=== PATIENT | female | born 1975 | race African-American/Black ===

== ENCOUNTER 2016-07-24 09:07 | Emergency (ER) | payer SELFPAY ==
[2016-07-24] MEDS ORDERED: Ondansetron HCl/PF 4 MG/2 ML Vial ONE (09:40)
[2016-07-24] MEDS ORDERED: Ketorolac Tromethamine 30 MG/ML VIAL ONE (09:40)
[2016-07-24 09:42] LABS: Bilirubin Negative (Negative); Blood, Urine Negative (Negative); Glucose, Urine (Dipstick) >=1000 mg/dL (Negative); Ketone, Urine 15 mg/dL (Negative); Nitrite Negative (Negative); Protein, Urine (Dipstick) Negative (Neg-Trace); Urobilinogen 0.2 mg/dL (0.2-1.0)
[2016-07-24 10:07] LABS: Methadone Not Detected (NotDetected); Methamphetamine Not Detected (NotDetected)
[2016-07-24 10:16] LABS: #Basophils 0.2 thou/uL (0.0-0.2); #Eosinphils 0.1 thou/uL (0.0-0.7); #Lymphocytes 0.4 thou/uL (1.20-3.40); #Monocytes 0.7 thou/uL (0.11-0.59); #Neutrophils 9.8 thou/uL (1.40-6.50); %Basophils 1.7 % (0.0-1.0); %Eosinophils 0.6 % (0.0-10.0); %Lymphocytes 3.8 % (21.0-51.0); %Monocytes 5.8 % (0.0-10.0); Hematocrit 38.1 % (36.0-47.0); Red Blood Cell (RBC) Count 4.56 mill/uL (4.20-5.40); White Blood Cell (WBC) Count 11.1 thou/uL (4.8-10.8)
[2016-07-24 10:23] LABS: ALT (SGPT) 14 U/L (0-55); AST (SGOT) 16 U/L (5-34); Alkaline Phosphatase 85 U/L (40-150); Anion Gap 18 mmol/L (10-20); BUN (Urea Nitrogen) 11 mg/dL (7.0-18.7); Bilirubin, Total 0.7 mg/dL (0.2-1.2); Calc. Creatinine Clearance 0 mL/min (70-130); Calcium 9.4 mg/dL (7.8-10.44); Carbon Dioxide 17 mmol/L (22-29); Chloride 104 mmol/L (98-107); Estimated GFR-MDRD 72; Globulin 3.3 g/dL (2.4-3.5); Protein, Total 7.5 g/dL (6.0-8.3)
--- NOTE | 2016-07-24 10:25 | CT ---
NONCONTRAST ENHANCED CT IMAGES ABDOMEN AND PELVIS: HISTORY: A 41-year-old with a history of pain. FINDINGS: Noncontrast-enhanced CT images of the abdomen and pelvis demonstrate the lung bases to be unremarkab le. No evidence of free intraperitoneal air is seen. The liver, spleen, and pancreas are unremarkable. The gallbladder has been surgically removed. Adr enal glands are unremarkable. Kidneys are unremarkable. No dilated loops of bowel seen. No signif icant evidence of bowel obstruction seen. A moderate amount of stool is seen in the colon. No evid ence of free intraperitoneal air is seen. No dilated loops of bowel seen. No evidence of renal calculi seen. IMPRESSION: No significant evidence of intraabdominal or pelvic pathology seen. Exam is limited due to the fact that IV and oral contrast was not given. POS: [facility]
[2016-07-24 10:56] LABS: Amylase 36 U/L (25-125)
[2016-07-24 11:04] LABS: Lipase 30 U/L (8-78)
[2016-07-24] MEDS ORDERED: Insulin Regular 300 UNITS/3 ML VIAL ONE ×2 (11:06→11:24)
[2016-07-24] MEDS ORDERED: Sodium Chloride 0.9% 100 ML ONE (11:25)
--- NOTE | 2016-07-24 11:33 | PICIS ---
[facility] EMERGENCY RECORD TRIAGE (MonJul 24, 2016 09:11 CAWO) TRIAGE NOTES: PT reports vomiting with low back pain and diffuse abdominal pain on set 07/23. (MonJul 24, 2016 09:11 CAWO) PATIENT: NAME: Esther Coyle, AGE: 41, GENDER: female, : Mon1975, TIME OF GREET: MonJul 24, 2016 09:07, PREFERRED LANGUAGE: Arabic, ETHNICITY: Not or , ECODE BILLING MAP: [facility], SSN: [id number], Zip Code: [address], KG WEIGHT: 77.11, PHONE: , , , PERSON ID: [id number]. (MonJul 24, 2016 09:11 CAWO) COMPLAINT: Abdominal Pain. (MonJul 24, 2016 09:11 CAWO) ADMISSION: URGENCY: 3 Urgent, ADMISSION SOURCE: Home, TRANSPORT: Walk-in, BED: ER -04. (MonJul 24, 2016 09:11 CAWO) IMMUNIZATIONS: Flu vaccine up to date, Tetanus immunization up to date, Pneumococcal vaccine not up to date. (09:17 CAWO) SIRS SCORING: Heart Rate 55-109 (0), Temp range 96.8-101.1 (0), respiratory rate 12-24 (0), Mental Status altered: no (0), Infection or Suspected Infection: No. (09:17 CAWO) TRIAGE SCREENING: Patient denies suicidal ideation, Patient denies presence of domestic violence. (09:17 CAWO) TREATMENTS IN PROGRESS: Treatments given Prehospital: motrin 400 mg. (09:17 CAWO) PROVIDERS: TRIAGE NURSE: Estela Rutherford RN. (MonJul 24, 2016 09:11 CAWO) VITAL SIGNS: BP 132/75, Pulse 100, Resp 20, Temp 98.6, (Oral), Pain 10, O2 Sat 100, on Room Air, Time 07/24/2016 09:12. (09:12 CAWO) PREVIOUS VISIT ALLERGIES: No Known Drug Allergies. (MonJul 24, 2016 09:11 CAWO) No Known Drug Allergies. (09:17 CAWO) KNOWN ALLERGIES No Known Drug Allergies CURRENT MEDICATIONS (10:25 CAWO) metFORMIN: TABLET : Strength - 500 mg : ORAL Patient Dose: 1000 mg Oral 2 times a day. VITAL SIGNS VITAL SIGNS: BP: 132/75, Pulse: 100, Resp: 20, Temp: 98.6 (Oral), Pain: 10, O2 sat: 100 on Room Air, Time: 07/24/2016 09:12. (09:12 CAWO) BP: 123/78, Pulse: 95, Resp: 18, Pain: 10, O2 sat: 100 on Room Air, Time: 07/24/2016 10:00. (10:00 CAWO) BP: 117/78, Pulse: 87, Resp: 16, Pain: 0, O2 sat: 100 on Room Air, Time: 07/24/2016 10:30. (10:30 CAWO) BP: 105/86, Pulse: 91, Resp: 18, Temp: 98.8 (Oral), Pain: 0, O2 sat: 100 on Room Air, Time: 07/24/2016 11:30. (11:30 CAWO) NURSING ASSESSMENT: ABDOMEN (09:35 CAWO) &a-1R&a+25V*p+0X*d7872D*c152B*c15G*c2P*p-0X&a-25V&a+1RName: Esther Coyle : F41 MedRec: [id number] AcctNum: [id number] Prepared: Rupal Jul 24, 2016 12:16 by Interface Page 1 of 14 pMD [facility] EMERGENCY RECORD CONSTITUTIONAL: Complex assessment performed, Patient arrives, via hospital wheelchair, Gait steady, History obtained from patient, Patient appears comfortable, Patient cooperative, Patient alert, Oriented to person, place and time, Skin warm, Skin dry, Skin normal in color, Mucous membranes pink, Mucous membranes moist, Patient is well-groomed, Patient complains of abdominal pain, PT reports abdominal pain with nausea and vomiting x 1 day. PT reports unable to sleep due to pain in bilateral flank and upper back. PT reports suprapubic pain as well with c/o recent UTI 1 month ago. PT in nad at present. PAIN: aching pain, diffusely, to the right flank, upper back, on a scale 0-10 patient rates pain as 10. NONVERBAL PAIN: Non-Verbal pain assessment findings include: No non-verbal complaints while at rest (0), Non-Verbal complaints present with movement (1), Facial Grimaces not present at rest (0), Facial grimaces present with movement (1), Bracing not present at rest (0), Bracing not present with movement (0), Restlessness not present at rest (0), Restlessness not present with movement (0), Rubbing not present at rest (0), Rubbing not present with movement (0), Result: 2. ABDOMEN: Abdomen assessment findings include abdomen symmetrical, Abdomen soft, tender, diffusely, to the left flank, to the right flank, Associated with nausea, Associated with vomiting. LMP: Last menstrual period not applicable due to menopause. GENITOURINARY FEMALE: Associated with urinary complaints, burning, difficulty urinating, no associated vaginal discharge, no associated vaginal bleeding, no associated vaginal foreign body, no associated complaints of painful intercourse, no urinary catheter present. SAFETY: Side rails up, Cart/Stretcher in lowest position, Family at bedside, Call light within reach, Hospital ID band on. NURSING ASSESSMENT: FALL RISK (10:07 CAWO) FALL RISK: Fall risk assessment findings include: no history of falls (0), No bed rest greater than 2 days (0), No use of level of consciousness altering agents with mentation or cognitive changes (0), No change in blood pressure (0), No sensory deficits (0), No impaired mobility (0), No neurologic diagnosis (0), No elimination problems (0), No confusion (0), Total score 0. NURSING ASSESSMENT: SKIN (10:07 CAWO) SKIN: Skin assessment findings include skin warm, Skin dry, Skin normal in color, Inspection findings include: No pressure ulcer to the shoulder, Inspection findings include no pressure ulcer to the elbow, Inspection findings include no pressure ulcers to the hip, Inspection findings include no pressure ulcer to the sacrum, Inspection findings include no pressure ulcer to the heel, Inspection findings include no pressure ulcer, Inspection findings include no pressure ulcer. &a-1R&a+25V*p+0X*i6432W*c152B*c15G*c2P*p-0X&a-25V&a+1RName: Esther Coyle : F41 MedRec: [id number] AcctNum: [id number] Prepared: Rupal Jul 24, 2016 12:16 by Interface Page 2 of 14 D [facility] EMERGENCY RECORD MARION SCALE: (3) Sensory perception slightly limited, (3) Skin is occasionally moist, (3) Patient walks occasionally, (3) Slightly limited mobility, (3) Adequate nutrition, (3) Patient has no apparent problem moving, Marion Risk Total: 18. SAFETY: Side rails up, Cart/Stretcher in lowest position, Family at bedside, Call light within reach, Hospital ID band on. NURSING PROCEDURE: BEDSIDE SIRS TESTING (11:19 CAWO) SCORES: Heart Rate 55-109 (0), Temp range 96.8-101.1 (0), respiratory rate 12-24 (0), Latest WBC 3-14.9 (0), Mental Status altered: no (0), Infection or Suspected Infection: No. NURSING PROCEDURE: TECHNICAL PROGRAMS MANAGER (09:17 CAWO) PATIENT IDENTIFIER: Patient's identity verified by patient stating name, Patient's identity verified by patient stating date, Patient's identity verified by hospital ID bracelet, Patient actively involved in identification process. TECHNICAL PROGRAMS MANAGER: Patient placed on groundwater monitoring technician, Patient placed on non-invasive blood pressure monitor, Patient placed on continuous pulse oximetry. FOLLOW-UP: After procedure, patient tolerating monitoring. NOTES: Emotional support needed and given. NURSING PROCEDURE: IV PATIENT IDENITIFIER: Patient actively involved in identification process, Patient's identity verified by patient stating name, Patient's identity verified by patient stating date, Patient's identity verified by hospital ID bracelet. (09:42 CAWO) IV SITE 1: IV established, to the left hand, using a 20 gauge catheter, in one attempt, IV site prepped with Chloraprep, Saline lock established. (09:42 CAWO) IV SITE 2: IV therapy indicated for hydration, IV therapy indicated for medication administration, IV established, to the left forearm, using a 20 gauge catheter, in two attempts, IV site prepped with chlroaprep, Saline lock established, Flushed with normal saline (mls): 10, Notes: by Margaret BOYD. (11:01 CAWO) FOLLOW-UP SITE 1: After procedure, sterile transparent dressing applied, After procedure, no drainage at IV site, After procedure, no swelling at IV site, After procedure, no redness at IV site. (09:42 CAWO) NOTES: Emotional support needed and given. (09:42 CAWO) NURSING PROCEDURE: NURSE NOTES NURSES NOTES: Notes: Dr Swain at BS. (09:18 CAWO) Patient assisted to bathroom with unsteady gait. (09:21 CKNU) Notes: PT resting in bed. PT requesting to eat chips and drink water at this time. PT informed the need to remain NPO until blood results and CT scan are obtained. NAD noted. RR even and unlabored. (10:25 CAWO) Notes: PT resting with eyes closed at present. Family at BS. VSS. &a-1R&a+25V*p+0X*a5547I*c152B*c15G*c2P*p-0X&a-25V&a+1RName: Esther Coyle : F41 MedRec: [id number] AcctNum: [id number] Prepared: Rupal Jul 24, 2016 12:16 by Interface Page 3 of 14 pMD [facility] EMERGENCY RECORD Monitors on with side rails up x 2 and call light within reach. (10:49 CAWO) NURSING PROCEDURE: TRANSFER (11:55 CAWO) TRANSFER: Reason for transfer need for specialized care, Diagnosis: DKA, Accepting institution: [facility], Accepting physician: Michael Referring physician: Wiliam, Transported by non-urgent ambulance, accompanied by emergency medical services personnel, Report called to receiving facility, [facility], Provided opportunity to answer questions, Summary of Care printed, Copy of patient record prepared for receiving facility, Status of patient's valuables documented on chart, Medication reconciliation form prepared and sent to receiving facility, Patient consent for transfer signed, Patient given appropriate sedation for safe transport, Family member contacted. BELONGINGS: Belongings and valuables with patient upon arrival to the Emergency Department include:, Belongings and valuables with patient at time of admission include:, Belongings remain with patient, Valuables remain with patient. NURSING PROCEDURE: TRANSPORT TO TESTS (09:58 CAWO) PATIENT IDENTIFIER: Patient actively involved in identification process, Patient's identity verified by patient stating name, Patient's identity verified by hospital ID bracelet. TRANSPORT TO TESTS: Transport indicated to facilitate diagnosis, Patient transported to CT scan, via cart, Accompanied by x-ray nanotechnology engineering technician. ORDER DETAILS Order Name: Amylase, Status: Active, Time: 10:26 07/24/2016, User: SLIM, - Ordered for: MD Swain Joseph, - Entered by: MD Swain Joseph - Rupal Jul 24, 2016 10:26, - Quantity: 1, Order Name: Beta-Hydroxybutyrate (Ketone), Status: Active, Time: 10:07/24/2016, User: SLIM, - Ordered for: MD Swain Joseph, - Entered by: MD Swain Joseph - Sun Jul 24, 2016 10:26, - Quantity: 1, Order Name: CBC with Differential, Status: Active, Time: 09:21 07/24/2016, User: SLIM, - Ordered for: MD Swain Joseph, - Entered by: MD Swain Joseph - Sun Jul 24, 2016 09:21, - Quantity: 1, Order Name: Comprehensive Metabolic Panel, Status: Active, Time: 09:21 07/24/2016, User: SLIM, - Ordered for: MD Swain Joseph, - Entered by: MD Swain Joseph - Sun Jul 24, 2016 09:21, - Quantity: 1, Order Name: CT Abdomen Pelvis WO Con, Status: Active, Time: 09:21 &a-1R&a+25V*p+0X*v9646K*c152B*c15G*c2P*p-0X&a-25V&a+1RName: Esther Coyle : F41 MedRec: [id number] AcctNum: [id number] Prepared: MonJul 24, 2016 12:16 by Interface Page 4 of 14 pMD [facility] EMERGENCY RECORD 07/24/2016, User: SLIM, - Ordered for: MD Swain Joseph, - Entered by: MD Swain Joseph - Sun Jul 24, 2016 09:21, - Quantity: 1, Order Name: Culture, Urine, Status: Active, Time: 09:21 07/24/2016, User: SLIM, - Ordered for: MD Swain Joseph, - Entered by: MD Swain Joseph - Sun Jul 24, 2016 09:21, - Quantity: 1, Order Name: Drug Screen, Urine, Status: Active, Time: 09:21 07/24/2016, User: SLIM, - Ordered for: MD Swain Joseph, - Entered by: MD Swain Joseph - Sun Jul 24, 2016 09:21, - Quantity: 1, Order Name: Lipase, Status: Active, Time: 10:26 07/24/2016, User: SLIM, - Ordered for: MD Swain Joseph, - Entered by: MD Swain Joseph - Sun Jul 24, 2016 10:26, - Quantity: 1, Order Name: Test, Urine (BHCG), Status: Active, Time: 09:21 07/24/2016, User: SLIM, - Ordered for: MD Swain Joseph, - Entered by: MD Swain Joseph - Sun Jul 24, 2016 09:21, - Quantity: 1, Order Name: SALINE LOCK, Status: Done, Time: 09:36 07/24/2016, User: REJI, - Ordered for: MD Swain Joseph, - Entered by: MD Swain Joseph - Sun Jul 24, 2016 09:21, - Quantity: 1, Order Name: Urinalysis w/ Rflx Microscopic, Status: Active, Time: 09:21 07/24/2016, User: SLIM, - Ordered for: MD Swain Joseph, - Entered by: MD Swain Joseph - Sun Jul 24, 2016 09:21, - Quantity: 1. MEDICATION ADMINISTRATION SUMMARY Drug Name: D5 %-0.45 % sodium chloride, Dose Ordered: 80 mL/hr, Route: IV Fluid Infusion, Status: Given, Time: 11:49 07/24/2016, Drug Name: NovoLIN R, Dose Ordered: 6 units/hr, Route: IV Fluid Infusion, Status: Given, Time: 11:32 07/24/2016, Drug Name: NovoLIN R, Dose Ordered: 8 units, Route: IV Push, Status: Given, Time: 11:14 07/24/2016, Drug Name: morphine injection, Dose Ordered: 4 mg, Route: IV Push, Status: Given, Time: 09:50 07/24/2016, Drug Name: ketorolac injection, Dose Ordered: 30 mg, Route: IV Push, Status: Given, Time: 09:46 07/24/2016, Drug Name: ondansetron HCl intravenous, Dose Ordered: 4 mg, Route: IV Push, Status: Given, Time: 09:45 07/24/2016, Drug Name: *sodium chloride 0.9 % intravenous, Dose Ordered: 1 L, Route: IV Fluid Infusion, Status: Given, Time: 09:44 07/24/2016, &a-1R&a+25V*p+0X*h9018V*c152B*c15G*c2P*p-0X&a-25V&a+1RName: Esther Coyle : F41 MedRec: [id number] AcctNum: [id number] Prepared: Rupal Jul 24, 2016 12:16 by Interface Page 5 of 14 pMD [facility] EMERGENCY RECORD *Additional information available in notes, Detailed record available in Medication Service section. MEDICATION SERVICE D5 %-0.45 % sodium chloride: Order: D5 %-0.45 % sodium chloride (dextrose 5% and 0.45% NaCl) - Dose: 80 mL/hr : IV Fluid Infusion Schedule: Now Ordered by: Jimy Swain MD Entered by: MD Rupal Crane Jul 24, 2016 11:48 Documented as given by: DEB Jean Jul 24, 2016 11:49 Patient, Medication, Dose, Route and Time verified prior to administration. Amount given: 80ml/hr, IV SITE #1 IV fluids established for hydration, IV SITE #1 into left hand, IV SITE #1 2nd bag hung, amount 1 Liter hung, IV SITE #1 Rate of infusion (non-bolus) Infusing at, 80, ml/hr, Connections checked prior to administration, Line traced prior to administration, Catheter placement confirmed via flush prior to administration, IV site without signs or symptoms of infiltration during medication administration, No swelling during administration, No drainage during administration, IV flushed after administration, Correct patient, time, route, dose and medication confirmed prior to administration, Patient advised of actions and side-effects prior to administration, Allergies confirmed and medications reviewed prior to administration. : Follow Up : Response assessment performed, No signs or symptoms of allergic reaction noted, _IV SITE #1:_, IV fluid infusion continued upon transfer from emergency department, on MonJul 24, 2016 11:58, 10 minutes, . (11:58 CAWO) ketorolac injection: Order: ketorolac injection (ketorolac tromethamine) - Dose: 30 mg : IV Push Schedule: Now Ordered by: Jimy Swain MD Entered by: Jimy Swain MD MonJul 24, 2016 09:19 , Acknowledged by: Estela Rutherford RN MonJul 24, 2016 09:25 Documented as given by: Estela Rutherford RN MonJul 24, 2016 09:46 Patient, Medication, Dose, Route and Time verified prior to administration. Amount given: 30mg, IV SITE #1 IVP, subsequent different medication, Slowly, Catheter placement confirmed via flush prior to administration, IV site without signs or symptoms of infiltration during medication administration, No swelling during administration, No drainage during administration, IV flushed after administration, Correct patient, time, route, dose and medication confirmed prior to administration, Patient advised of actions and side-effects prior to administration, Allergies confirmed and medications reviewed prior to administration. morphine injection: Order: morphine injection (morphine sulfate) - Dose: 4 mg : IV Push Schedule: Now Ordered by: Jimy Swain MD &a-1R&a+25V*p+0X*t7405K*c152B*c15G*c2P*p-0X&a-25V&a+1RName: CoyleEsther rothman : F41 MedRec: [id number] AcctNum: [id number] Prepared: MonJul 24, 2016 12:16 by Interface Page 6 of 14 pMD [facility] EMERGENCY RECORD Entered by: Jimy Swain MD MonJul 24, 2016 09:19 , Acknowledged by: Estela Rutherford RN MonJul 24, 2016 09:25 Documented as given by: DEB Jean Jul 24, 2016 09:50 Patient, Medication, Dose, Route and Time verified prior to administration. Amount given: 4mg, IV SITE #1 IVP, subsequent different medication, Slowly, Awake and alert- acceptable, Catheter placement confirmed via flush prior to administration, IV site without signs or symptoms of infiltration during medication administration, No swelling during administration, No drainage during administration, IV flushed after administration, Correct patient, time, route, dose and medication confirmed prior to administration, Patient advised of actions and side-effects prior to administration, Allergies confirmed and medications reviewed prior to administration. NovoLIN R: Order: NovoLIN R (insulin regular, human) - Dose: 8 units : IV Push Schedule: Now Ordered by: Jimy Swain MD Entered by: MD Rupal Crane Jul 24, 2016 10:59 , Acknowledged by: Estela Rutherford RN [place] Jul 24, 2016 11:03 Documented as given by: DEB Jean Jul 24, 2016 11:14 Patient, Medication, Dose, Route and Time verified prior to administration. Amount given: 8units, IV SITE #1 IVP, subsequent different medication, Slowly, Catheter placement confirmed via flush prior to administration, IV site without signs or symptoms of infiltration during medication administration, No swelling during administration, No drainage during administration, IV flushed after administration, Correct patient, time, route, dose and medication confirmed prior to administration, Patient advised of actions and side-effects prior to administration, Allergies confirmed and medications reviewed prior to administration, Co-signed by: DEB Pitts Jul 24, 2016 11:33. NovoLIN R: Order: NovoLIN R (insulin regular, human) - Dose: 6 units/hr : IV Fluid Infusion Schedule: Now Ordered by: Jimy Swain MD Entered by: MD Rupal Crane Jul 24, 2016 11:04 , Acknowledged by: DEB Jean Jul 24, 2016 11:07 Documented as given by: DEB Jean Jul 24, 2016 11:32 Patient, Medication, Dose, Route and Time verified prior to administration. Amount given: 6units/hr, IV SITE #1 IVPB or drip, initial infusion, IVPB mixed in: 100ml, Fluid: 0.9NS, via primary tubing, Connections checked prior to administration, Line traced prior to administration, Catheter placement confirmed via flush prior to administration, IV site without signs or symptoms of infiltration during medication administration, No swelling during administration, No drainage during administration, IV flushed after administration, Correct patient, time, route, dose and medication confirmed prior to administration, Patient advised of actions and side-effects prior to administration, &a-1R&a+25V*p+0X*f6882Y*c152B*c15G*c2P*p-0X&a-25V&a+1RName: Esther Coyle : F41 MedRec: [id number] AcctNum: [id number] Prepared: MonJul 24, 2016 12:16 by Interface Page 7 of 14 pMD [facility] EMERGENCY RECORD Allergies confirmed and medications reviewed prior to administration, 100 units mixed in 100 ml NS, Co-signed by: Tania Bustamante RN MonJul 24, 2016 11:34, Co-signed by: DEB Osborne Jul 24, 2016 11:34. : Follow Up : Response assessment performed, No signs or symptoms of allergic reaction noted, _IV SITE #2:_, Medication infusion continued upon transfer from emergency department, on MonJul 24, 2016 11:58, 30 minutes, . (11:58 CAWO) ondansetron HCl intravenous: Order: ondansetron HCl intravenous (ondansetron HCl) - Dose: 4 mg : IV Push Schedule: Now Ordered by: Jimy Swain MD Entered by: MD Rupal Crane Jul 24, 2016 09:19 , Acknowledged by: DEB Jean Jul 24, 2016 09:25 Documented as given by: DEB Jean Jul 24, 2016 09:45 Patient, Medication, Dose, Route and Time verified prior to administration. Amount given: 4mg, IV SITE #1 IVP, initial medication, Slowly, Catheter placement confirmed via flush prior to administration, IV site without signs or symptoms of infiltration during medication administration, No swelling during administration, No drainage during administration, IV flushed after administration, Correct patient, time, route, dose and medication confirmed prior to administration, Patient advised of actions and side-effects prior to administration, Allergies confirmed and medications reviewed prior to administration. sodium chloride 0.9 % intravenous: Order: sodium chloride 0.9 % intravenous (0.9 % sodium chloride) - Dose: 1 L : IV Fluid Infusion Schedule: Bolus Notes: (Bolus) Ordered by: Jimy Swain MD Entered by: MD Rupal Crane Jul 24, 2016 09:20 , Acknowledged by: DEB Jean Jul 24, 2016 09:25 Documented as given by: DEB Jean Jul 24, 2016 09:44 Patient, Medication, Dose, Route and Time verified prior to administration. Amount given: 1000ml, IV SITE #1 IV fluids established for hydration, IV SITE #1 into left hand, IV SITE #1 1st bag hung, amount 1 Liter hung, IV SITE #1 bolus of 1000 ml established, Connections checked prior to administration, Line traced prior to administration, Catheter placement confirmed via flush prior to administration, IV site without signs or symptoms of infiltration during medication administration, No swelling during administration, No drainage during administration, IV flushed after administration, Correct patient, time, route, dose and medication confirmed prior to administration, Patient advised of actions and side-effects prior to administration, Allergies confirmed and medications reviewed prior to administration. : Follow Up : Response assessment performed, No signs or symptoms of allergic reaction noted, _IV SITE #1:_, IV fluid infusion discontinued, on [place] Jul 24, 2016 11:01, Total fluid hydration time IV site 1 1 hour, 20 minutes, ., Total amount infused: &a-1R&a+25V*p+0X*k4603T*c152B*c15G*c2P*p-0X&a-25V&a+1RName: Esther Coyle : F41 MedRec: [id number] AcctNum: [id number] Prepared: [place] Jul 24, 2016 12:16 by Interface Page 8 of 14 pMD [facility] EMERGENCY RECORD 1000ml, IV Line flushed after administration. (11:01 CAWO) HPI ABDOMINAL PAIN (09:22 JROB) CHIEF COMPLAINTS: Patient presents for evaluation of abdominal pain, Patient presents for evaluation of Vomiting. HISTORIAN: History provided by patient, 41 year old female with history of NIDDM presents with back, flank, abdominal pain with cough, vomiting that started yesterday. Subjective fever, sweats. Took Motrin 400 mg this morning with little relief. QUALITY: Pain is sharp in nature. SEVERITY: Current severity of pain rated as 10/10. ASSOCIATED WITH FEMALE: No associated recent antibiotic use, No associated constipation, No associated diarrhea, Associated with fever, Associated with flank pain, Associated with nausea, No associated trauma, No associated recent travel, No associated urinary tract infection signs or symptoms, Associated with vomiting. RELIEVED BY: Patient's condition relieved by nothing. EXACERBATED BY: Patient's condition exacerbated by nothing. ROS (09:24 JROB) CONSTITUTIONAL: Historian reports fever, reports night sweats. EYES: Historian denies vision changes. ENT: Historian denies sore throat. CARDIOVASCULAR: Historian denies syncope. RESPIRATORY: Historian reports cough. GI: Historian reports abdominal pain, reports vomiting. GENITOURINARY FEMALE: Historian denies dysuria, denies hematuria. MUSCULOSKELETAL: Historian reports back pain. SKIN: Historian denies rash. NEUROLOGIC: Historian reports dizziness, denies headache. HEMO/LYMPHATIC: Historian denies abnormal blood clotting. ALLERGIC/IMMUNOLOGIC: Historian denies frequent infections. PSYCHIATRIC: Historian denies alcohol abuse, denies drug abuse. NOTES: All systems reviewed, negative except as described above. PAST MEDICAL HISTORY MEDICAL HISTORY: Tetanus immunization up to date, : DJD, Past medical history includes musculoskeletal disorder, Flu vaccine not up to amisha, Pneumococcal vaccine not up to date, Past medical history includes history of diabetes, Type II, high cholesterol. verified 07-24-16. (09:17 CAWO) FEMALE SURGICAL HISTORY: Surgical history of appendectomy, Surgical history of cholecystectomy. . verified 07-24-16. (09:17 CAWO) SOCIAL HISTORY: Patient drinks socially, Patient denies drug use, Patient currently uses tobacco, Patient smokes cigarettes, Patient smokes 0.5 pack per day. verified 07-24-16. (09:17 CAWO) &a-1R&a+25V*p+0X*f6323X*c152B*c15G*c2P*p-0X&a-25V&a+1RName: Jonna Esther : F41 MedRec: [id number] AcctNum: [id number] Prepared: Rupal Jul 24, 2016 12:16 by Interface Page 9 of 14 D [facility] EMERGENCY RECORD NOTES: Nursing records reviewed, Agree with nursing records, Medication list reviewed. (: JROB) PHYSICAL EXAM (09:24 JROB) CONSTITUTIONAL: Vital Signs Reviewed, Patient afebrile, Pulse, tachycardic, Blood pressure normal, Patient appears non toxic, Patient alert and oriented to person, place and time, Nursing notes reviewed. HEAD: Head exam normal, Head exam included findings of head atraumatic. EYES: Eye exam normal, Pupils equally round and reactive to light, Extraocular muscles intact. ENT: Pharynx exam normal, Mouth exam normal. NECK: no cervical adenopathy. RESPIRATORY CHEST: Respiratory and chest exam normal, Breath sounds clear, No wheezing, No rales, No rhonchi. CARDIOVASCULAR: Cardiovascular exam included findings of, rate tachycardic, rhythm regular. ABDOMEN FEMALE: Abdominal exam included findings of abdomen nontender, no mass, no peritoneal signs. BACK: Tenderness, paraspinal to the left lower back, paraspinal to the right lower, Costovertebral angle tenderness, bilaterally. UPPER EXTREMITY: Upper extremity exam normal, Upper extremity exam included findings of inspection normal, Motor strength normal, Sensation intact. LOWER EXTREMITY: Lower extremity exam normal, Lower extremity exam included findings of inspection normal, Motor strength normal, Sensation intact. NEURO: Neuro exam findings include patient oriented to person, place and time, no focal motor deficits, no focal sensory deficits. SKIN: Skin exam included findings of skin warm, dry, no rash. LAB INTERPRETATION (11:09 JROB) INTERPRETATION: I reviewed the lab results, CBC abnormal, White blood cell count elevated, CBC otherwise normal, Chemistry abnormal, Sodium decreased, Glucose elevated, Bicarbonate decreased, Chemistry otherwise normal, Liver functions normal, Amylase normal, Lipase normal, Urinalysis abnormal, positive for ketones, positive for glucose, Urine toxicology negative, Urine HCG negative, serum ketones - positive. EVENTS TRANSFER: Triage to Emergency Emergency Room -04. (Rupal Jul 24, 2016 09:11 CAWO) Removed from Emergency Emergency Room -04. (12:05 CAWO) RADIOLOGYINTERPRETATION (10:40 JROB) ABDOMEN: Abdomen/pelvis CT scan, without contrast negative, no &a-1R&a+25V*p+0X*t1646A*c152B*c15G*c2P*p-0X&a-25V&a+1RName: Jonna Esther : F41 MedRec: [id number] AcctNum: [id number] Prepared: Rupal Jul 24, 2016 12:16 by Interface Page 10 of 14 [facility] kidney stones, no obstruction, no free air. RADIO MACHINIST: Preliminary review of CT scans by, Radiologist. O2SAT INTERPRETATION (09:26 JROB) O2SAT: Single pulse oximetry, Oxygen saturation 100%, on room air, Oxygen saturation interpretation: Normal, No intervention required. DOCTOR NOTES TEXT: Ordered Morphine, Toradol, Zofran, IVF, labs, urine, CT abd/pelvis without contrast. (09:26 JROB) CT negative, labs remarkable for DKA. Ordered Insulin bolus and infusion, discussed with patient, will proceed with transfer to [facility]. (11:11 JROB) Patient accepted by Dr. Rodriguez at 11:25am. (11:27 JROB) Repeat glucose 140's, ordered infusion of D5-1/2NS prior to EMS transport. (11:48 JROB) PATIENT STATUS: Patient has improved since arrival to emergency department. (11:27 JROB) PATIENT PLAN: The patient requires a transfer and will be transferred, due to availability of specialty care, Transfer form completed. (11:27 JROB) DATA REVIEWED: Lab data reviewed, Xray data reviewed. (11:27 JROB) PROBLEM LIST No recorded problems DIAGNOSIS DIFFERENTIAL: Based on history, exam and ancillary studies if indicated: Impression: abdominal pain of unclear etiology, Impression: pancreatitis, Impression: gastritis, Impression: GERD, Impression: peptic ulcer disease, Impression: urinary tract disease, Impression: pyelonephritis, Impression: hyperglycemia, Impression: DKA, Impression: medication noncompliance, Impression: acute infection, Impression: renal insufficiency, Diagnoses considered are not limited to those documented above. (11:12 JROB) FINAL: PRIMARY: Diabetic Ketoacidosis, ADDITIONAL: Diffuse abdominal pain. (11:28 JROB) DISPOSITION PATIENT: Disposition Type: Transfer, Disposition: Transfer to [facility]. (11:28 JROB) Patient left the department. (12:05 CAWO) PRESCRIPTION No recorded prescriptions IMAGING &a-1R&a+25V*p+0X*j2691D*c152B*c15G*c2P*p-0X&a-25V&a+1RName: Esther Coyle : F41 MedRec: [id number] AcctNum: [id number] Prepared: Rupal Jul 24, 2016 12:16 by Interface Page 11 of 14 [facility] *MEMORANDUM OF TRANSFER: Image captured from scanner. (11:33 REZE) CONSENTS: Image captured from scanner. (11:33 REZE) *SUPPLY CHARGE SHEET: Image captured from scanner. (12:00 CAWO) ADMIN DIGITAL SIGNATURE: MD Swain Joseph. (11:28 JROB) MD Swain Joseph. (11:49 JROB) RESULTS LABORATORY: Urinalysis w/ Rflx Microscopic Collection DT: Rupal Jul 24, 2016 09:40, Color Yellow , Range (Yellow), Clarity SL HAZY , Range (Clear), Specific [place], Urine 1.015 , Range (1.005-1.030), pH, Urine 7.0 , Range (5.0-9.0), Leukocyte Negative , Range (Negative), Nitrite Negative , Range (Negative), Protein, Urine (Dipstick) Negative mg/dL, Range (Neg-Trace), *Glucose, Urine (Dipstick) >=1000 - H mg/dL, Range (Negative), *Ketone, Urine 15 - H mg/dL, Range (Negative), Urobilinogen 0.2 mg/dL, Range (0.2-1.0), Bilirubin Negative , Range (Negative), Blood, Urine Negative , Range (Negative). (09:54 JROB) Test, Urine (BHCG) Collection DT: Rupal Jul 24, 2016 09:40, Test - Urine (BHCG) NEGATIVE , Range (NEGATIVE), Method of sensitivity- Indeterminant: results should be repeated, after 48 hours. Positive: results may be detected as early as 4-5 days before a first missed menses. Elimination of BHCG-, Elimination following first trimester D&C: 29-44 Days , Elimination following term : 8-24 Days , Specific [place] 1.015 , Range (1.002-1.036), A dilute urine specimen may, not contain electroplating sales representative levels of hCG. If is still, suspected, a first morning urine specimen OR a random blood specimen should, be obtained from the patient 48-72 hours later and re-tested. , . (09:54 JROB) Drug Screen, Urine Collection DT: Rupal Jul 24, 2016 10:06, THC/Cannabinoid Screen Not Detected , Range (NotDetected), Phencyclidine (PCP) Not Detected , Range (NotDetected), Cocaine Metabolite Screen Not Detected , Range (NotDetected), Methamphetamine Not Detected , Range (NotDetected), &a-1R&a+25V*p+0X*j4144P*c152B*c15G*c2P*p-0X&a-25V&a+1RName: Esther Coyle : F41 MedRec: [id number] AcctNum: [id number] Prepared: Rupal Jul 24, 2016 12:16 by Interface Page 12 of 14 [facility] Opiate Screen Not Detected , Range (NotDetected), Amphetamine Not Detected , Range (NotDetected), Benzodiazepine Screen Not Detected , Range (NotDetected), Tricyclic Screen Not Detected , Range (NotDetected), Methadone Not Detected , Range (NotDetected), Barbiturates Screen Not Detected , Range (NotDetected), Oxycodone Screen Not Detected , Range (NotDetected), Propoxyphene Screen Not Detected , Range (NotDetected), Drug Screen Cutoff , Range (), The [employer] Limited Profile-V Panel for Qualitative Drugs of Abuse assays are for, presumptive screening testing only. The drug class and detection limits, are as follows: Drug Class Detection Limit Amphetamine , 500 ng/mL* Barbiturates 200 ng/mL , Benzodiazepines 150 ng/mL* Cocaine 150 ng/mL*, Methamphetamine 500 ng/mL* Methadone 200, ng/mL* Opiates 100 ng/mL* Oxycodone , 100 ng/mL PCP 25 ng/mL Propoxyphene , 300 ng/mL Tricyclic Antidepressants 300 ng/mL Cannabinoids (THC) , 50 ng/mL Tests which yield a presumptive positive result must be , tested using a more specific alternate chemical method in order to obtain, a confirmed analytical result. Additional confirmation and identification, may be ordered on a routine basis, if desired. Presumptive positive urines, are held for two weeks. . (10:10 JROB) Comprehensive Metabolic Panel Collection DT: Rupal Jul 24, 2016 10:06, *Sodium 135 - L mmol/L, Range (136-145), Potassium 4.4 mmol/L, Range (3.5-5.1), Chloride 104 mmol/L, Range (98-107), *Carbon Dioxide 17 - L mmol/L, Range (22-29), Anion Gap 18 mmol/L, Range (10-20), BUN (Urea Nitrogen) 11 mg/dL, Range (7.0-18.7), Creatinine 1.02 mg/dL, Range (0.6-1.1), Estimated GFR-MDRD 72 , Reference Range for Estimated GFR: Greater than 90, mL/min/1.73 m2 NOTE: The MDRD equation has not been validated for use, with the elderly (over 70 years of age), women, patients with, serious comorbid condition or persons with extremes of body size, muscle, mass, or nutritional status. , &a-1R&a+25V*p+0X*l7137V*c152B*c15G*c2P*p-0X&a-25V&a+1RName: Esther Coyle : F41 MedRec: [id number] AcctNum: [id number] Prepared: Rupal Jul 24, 2016 12:16 by Interface Page 13 of 14 p[facility] EM[facility]GENCY RECORD *Glucose 296 - H mg/dL, Range (70-105), Calcium 9.4 mg/dL, Range (7.8-10.44), Bilirubin, Total 0.7 mg/dL, Range (0.2-1.2), Protein, Total 7.5 g/dL, Range (6.0-8.3), NOTE: Plasma values are generally 0.3 to 0.5 g/dL higher than serum values, due to the presence of fibrinogen. , Albumin 4.2 g/dL, Range (3.5-5.0), Globulin 3.3 g/dL, Range (2.4-3.5), Alb/Glob Ratio 1.3 g/dL, Range (1.2-2.2), Alkaline Phosphatase 85 U/L, Range (40-150), AST (SGOT) 16 U/L, Range (5-34), ALT (SGPT) 14 U/L, Range (0-55). (10:25 JROB) CBC with Differential Collection DT: Rupal Jul 24, 2016 10:06, *White Blood Cell (WBC) Count 11.1 - H thou/uL, Range (4.8-10.8), Red Blood Cell (RBC) Count 4.56 mill/uL, Range (4.20-5.40), Hemoglobin 12.1 g/dL, Range (12.0-16.0), Hematocrit 38.1 %, Range (36.0-47.0), Mean Corpuscular Volume 83.6 fl, Range (81.0-99.0), *Mean Corpuscular Hemoglobin 26.6 - L pg, Range (27.0-31.0), *Mean Corpuscular HGB CONC 31.8 - L g/dL, Range (32.0-36.0), RBC Distribution Width 13.8 %, Range (11.5-14.5), Platelet Count 248 thou/uL, Range (130-400), Mean Platelet Volume 9.0 fL, Range (7.4-10.4), *%Neutrophils 88.1 - H %, Range (42.0-75.0), *%Lymphocytes 3.8 - L %, Range (21.0-51.0), %Monocytes 5.8 %, Range (0.0-10.0), %Eosinophils 0.6 %, Range (0.0-10.0), *%Basophils 1.7 - H %, Range (0.0-1.0), *#Neutrophils 9.8 - H thou/uL, Range (1.40-6.50), *#Lymphocytes 0.4 - L thou/uL, Range (1.20-3.40), *#Monocytes 0.7 - H thou/uL, Range (0.11-0.59), #Eosinphils 0.1 thou/uL, Range (0.0-0.7), #Basophils 0.2 thou/uL, Range (0.0-0.2). (10:25 JROB) Amylase Collection DT: [place] Jul 24, 2016 10:38, Amylase 36 U/L, Range (25-125). (10:58 JROB) Beta-Hydroxybutyrate (Ketone) Collection DT: [place] Jul 24, 2016 10:38, *Beta-Hydroxybutyrate (Ketone) 0.73 - H mmol/L, Range (0.02-0.27). (11:03 JROB) Lipase Collection DT: [place] Jul 24, 2016 10:38, Lipase 30 U/L, Range (8-78). (11:08 JROB) Amylase Collection DT: [place] Jul 24, 2016 10:38, Amylase 36 U/L, Range (25-125). (11:08 JROB) Accuchek Collection DT: [place] Jul 24, 2016 11:43, *Accuchek 146 - H mg/dL, Range (70-110). (11:47 JROB) Peter: REJI=DEB Rutherford, Estela CKNU=DEB Dave, Margaret JROB=MD Wiliam, Jimy MANRIQUEZ=DEB Bustamante, Tania &a-1R&a+25V*p+0X*a2746A*c152B*c15G*c2P*p-0X&a-25V&a+1RName: Esther Coyle : F41 MedRec: [id number] AcctNum: [id number] Prepared: [place] Jul 24, 2016 12:16 by Interface Page 14 of 14 pMD [facility]TDD
--- NOTE | 2016-07-24 11:33 | ERRECORD ---
[facility] EMERGENCY RECORD HPI ABDOMINAL PAIN (: JROB) CHIEF COMPLAINTS: Patient presents for evaluation of abdominal pain, Patient presents for evaluation of Vomiting. HISTORIAN: History provided by patient, 41 year old female with history of NIDDM presents with back, flank, abdominal pain with cough, vomiting that started yesterday. Subjective fever, sweats. Took Motrin 400 mg this morning with little relief. QUALITY: Pain is sharp in nature. SEVERITY: Current severity of pain rated as 10/10. ASSOCIATED WITH FEMALE: No associated recent antibiotic use, No associated constipation, No associated diarrhea, Associated with fever, Associated with flank pain, Associated with nausea, No associated trauma, No associated recent travel, No associated urinary tract infection signs or symptoms, Associated with vomiting. RELIEVED BY: Patient's condition relieved by nothing. EXACERBATED BY: Patient's condition exacerbated by nothing. ROS (09:24 JROB) CONSTITUTIONAL: Historian reports fever, reports night sweats. EYES: Historian denies vision changes. ENT: Historian denies sore throat. CARDIOVASCULAR: Historian denies syncope. RESPIRATORY: Historian reports cough. GI: Historian reports abdominal pain, reports vomiting. GENITOURINARY FEMALE: Historian denies dysuria, denies hematuria. MUSCULOSKELETAL: Historian reports back pain. SKIN: Historian denies rash. NEUROLOGIC: Historian reports dizziness, denies headache. HEMO/LYMPHATIC: Historian denies abnormal blood clotting. ALLERGIC/IMMUNOLOGIC: Historian denies frequent infections. PSYCHIATRIC: Historian denies alcohol abuse, denies drug abuse. NOTES: All systems reviewed, negative except as described above. PAST MEDICAL HISTORY MEDICAL HISTORY: Tetanus immunization up to date, : DJD, Past medical history includes musculoskeletal disorder, Flu vaccine not up to amisha, Pneumococcal vaccine not up to date, Past medical history includes history of diabetes, Type II, high cholesterol. verified 07-24-16. (09:17 CAWO) FEMALE SURGICAL HISTORY: Surgical history of appendectomy, Surgical history of cholecystectomy. . verified 07-24-16. (09:17 CAWO) SOCIAL HISTORY: Patient drinks socially, Patient denies drug use, Patient currently uses tobacco, Patient smokes cigarettes, Patient smokes 0.5 pack per day. verified 07-24-16. (09:17 CAWO) NOTES: Nursing records reviewed, Agree with nursing records, Medication list reviewed. (09:25 JROB) &a-1R&a+25V*p+0X*p5475E*c152B*c15G*c2P*p-0X&a-25V&a+1RName: Esther Coyle : F41 MedRec: [id number] AcctNum: [id number] Prepared: Rupal Jul 24, 2016 12:10 by Interface Page 1 of 4 pMD [facility] EMERGENCY RECORD KNOWN ALLERGIES No Known Drug Allergies CURRENT MEDICATIONS (10:25 CAWO) metFORMIN: TABLET : Strength - 500 mg : ORAL Patient Dose: 1000 mg Oral 2 times a day. VITAL SIGNS VITAL SIGNS: BP: 132/75, Pulse: 100, Resp: 20, Temp: 98.6 (Oral), Pain: 10, O2 sat: 100 on Room Air, Time: 07/24/2016 09:12. (09:12 CAWO) BP: 123/78, Pulse: 95, Resp: 18, Pain: 10, O2 sat: 100 on Room Air, Time: 07/24/2016 10:00. (10:00 CAWO) BP: 117/78, Pulse: 87, Resp: 16, Pain: 0, O2 sat: 100 on Room Air, Time: 07/24/2016 10:30. (10:30 CAWO) BP: 105/86, Pulse: 91, Resp: 18, Temp: 98.8 (Oral), Pain: 0, O2 sat: 100 on Room Air, Time: 07/24/2016 11:30. (11:30 CAWO) PHYSICAL EXAM (09:24 JROB) CONSTITUTIONAL: Vital Signs Reviewed, Patient afebrile, Pulse, tachycardic, Blood pressure normal, Patient appears non toxic, Patient alert and oriented to person, place and time, Nursing notes reviewed. HEAD: Head exam normal, Head exam included findings of head atraumatic. EYES: Eye exam normal, Pupils equally round and reactive to light, Extraocular muscles intact. ENT: Pharynx exam normal, Mouth exam normal. NECK: no cervical adenopathy. RESPIRATORY CHEST: Respiratory and chest exam normal, Breath sounds clear, No wheezing, No rales, No rhonchi. CARDIOVASCULAR: Cardiovascular exam included findings of, rate tachycardic, rhythm regular. ABDOMEN FEMALE: Abdominal exam included findings of abdomen nontender, no mass, no peritoneal signs. BACK: Tenderness, paraspinal to the left lower back, paraspinal to the right lower, Costovertebral angle tenderness, bilaterally. UPPER EXTREMITY: Upper extremity exam normal, Upper extremity exam included findings of inspection normal, Motor strength normal, Sensation intact. LOWER EXTREMITY: Lower extremity exam normal, Lower extremity exam included findings of inspection normal, Motor strength normal, Sensation intact. NEURO: Neuro exam findings include patient oriented to person, place and time, no focal motor deficits, no focal sensory deficits. SKIN: Skin exam included findings of skin warm, dry, no rash. RADIOLOGYINTERPRETATION (10:40 JROB) &a-1R&a+25V*p+0X*b3621V*c152B*c15G*c2P*p-0X&a-25V&a+1RName: Esther Coyle : F41 MedRec: [id number] AcctNum: [id number] Prepared: Rupal Jul 24, 2016 12:10 by Interface Page 2 of 4 pMD [facility] EMERGENCY RECORD ABDOMEN: Abdomen/pelvis CT scan, without contrast negative, no kidney stones, no obstruction, no free air. ASSISTANT CONTROLLER: Preliminary review of CT scans by, Radiologist. MEDICATION ADMINISTRATION SUMMARY Drug Name: D5 %-0.45 % sodium chloride, Dose Ordered: 80 mL/hr, Route: IV Fluid Infusion, Status: Given, Time: 11:49 07/24/2016, Drug Name: NovoLIN R, Dose Ordered: 6 units/hr, Route: IV Fluid Infusion, Status: Given, Time: 11:32 07/24/2016, Drug Name: NovoLIN R, Dose Ordered: 8 units, Route: IV Push, Status: Given, Time: 11:14 07/24/2016, Drug Name: morphine injection, Dose Ordered: 4 mg, Route: IV Push, Status: Given, Time: 09:50 07/24/2016, Drug Name: ketorolac injection, Dose Ordered: 30 mg, Route: IV Push, Status: Given, Time: 09:46 07/24/2016, Drug Name: ondansetron HCl intravenous, Dose Ordered: 4 mg, Route: IV Push, Status: Given, Time: 09:45 07/24/2016, Drug Name: *sodium chloride 0.9 % intravenous, Dose Ordered: 1 L, Route: IV Fluid Infusion, Status: Given, Time: 09:44 07/24/2016, *Additional information available in notes, Detailed record available in Medication Service section. DOCTOR NOTES TEXT: Ordered Morphine, Toradol, Zofran, IVF, labs, urine, CT abd/pelvis without contrast. (09:26 JROB) CT negative, labs remarkable for DKA. Ordered Insulin bolus and infusion, discussed with patient, will proceed with transfer to [facility]. (11:11 JROB) Patient accepted by Dr. Rodriguez at 11:25am. (11:27 JROB) Repeat glucose 140's, ordered infusion of D5-1/2NS prior to EMS transport. (11:48 JROB) PATIENT STATUS: Patient has improved since arrival to emergency department. (11:27 JROB) PATIENT PLAN: The patient requires a transfer and will be transferred, due to availability of specialty care, Transfer form completed. (11:27 JROB) DATA REVIEWED: Lab data reviewed, Xray data reviewed. (11:27 JROB) PROBLEM LIST No recorded problems DIAGNOSIS DIFFERENTIAL: Based on history, exam and ancillary studies if indicated: Impression: abdominal pain of unclear etiology, Impression: pancreatitis, Impression: gastritis, Impression: GERD, Impression: peptic ulcer disease, Impression: urinary tract disease, Impression: pyelonephritis, Impression: hyperglycemia, Impression: DKA, Impression: &a-1R&a+25V*p+0X*n4593S*c152B*c15G*c2P*p-0X&a-25V&a+1RName: Esther Coyle : F41 MedRec: [id number] AcctNum: [id number] Prepared: Rupal Jul 24, 2016 12:10 by Interface Page 3 of 4 pMD [facility] EMERGENCY RECORD medication noncompliance, Impression: acute infection, Impression: renal insufficiency, Diagnoses considered are not limited to those documented above. (11:12 JROB) FINAL: PRIMARY: Diabetic Ketoacidosis, ADDITIONAL: Diffuse abdominal pain. (11:28 JROB) PRESCRIPTION No recorded prescriptions DISPOSITION PATIENT: Disposition Type: Transfer, Disposition: Transfer to [facility]. (11:28 JROB) Patient left the department. (12:05 REJI) Peter: CAMaryO=DEB Rutherford, Estela GUARDADOOB=MD Wiliam, Jimy &a-1R&a+25V*p+0X*r0672K*c152B*c15G*c2P*p-0X&a-25V&a+1RName: Esther Coyle : F41 MedRec: [id number] AcctNum: [id number] Prepared: Rupal Jul 24, 2016 12:10 by Interface Page 4 of 4 pMD MTDD
[2016-07-24] MEDS ORDERED: Dextrose 5 %-0.45 % NaCl 1,000 ML ONE (11:48)
== END 2016-07-24 11:55 | disposition short-term general hospital (02) ==
LOC: NAV ERS 09:07
DX: E13.10 Other specified diabetes mellitus with ketoacidosis without coma (principal); F17.210 Nicotine dependence, cigarettes, uncomplicated; Z79.84 Long term (current) use of oral hypoglycemic drugs
CPT/HCPCS: 36416; 74176; 80053; 80306; 81003; 81025; 82010; 82150; 83690; 85025; 87077; 87086; 96361; 96365; 96375; 96376; J1815; J1885; J2270; J2405; J7042

== ENCOUNTER 2016-08-05 15:18 | Emergency (ER) | payer OTHER, SELFPAY ==
[2016-08-05] MEDS ORDERED: Ondansetron ODT 4 MG TAB ONE (15:46)
[2016-08-05] MEDS ORDERED: Acetaminophen 325 MG TAB ONE (15:47)
[2016-08-05 16:07] LABS: #Eosinphils 0.2 thou/uL (0.0-0.7); #Lymphocytes 1.1 thou/uL (1.20-3.40); #Monocytes 0.5 thou/uL (0.11-0.59); #Neutrophils 4.3 thou/uL (1.40-6.50); %Basophils 0.6 % (0.0-1.0); %Lymphocytes 17.3 % (21.0-51.0); %Monocytes 7.9 % (0.0-10.0); Mean Platelet Volume 7.2 fL (7.4-10.4); Red Blood Cell (RBC) Count 4.86 mill/uL (4.20-5.40); White Blood Cell (WBC) Count 6.1 thou/uL (4.8-10.8)
[2016-08-05 16:22] LABS: ALT (SGPT) 15 U/L (0-55); AST (SGOT) 17 U/L (5-34); Alkaline Phosphatase 74 U/L (40-150); Anion Gap 15 mmol/L (10-20); BUN (Urea Nitrogen) 18 mg/dL (7.0-18.7); Bilirubin, Total 0.4 mg/dL (0.2-1.2); Calc. Creatinine Clearance 0 mL/min (70-130); Calcium 9.3 mg/dL (7.8-10.44); Carbon Dioxide 20 mmol/L (22-29); Chloride 105 mmol/L (98-107); Estimated GFR-MDRD 86; Globulin 3.4 g/dL (2.4-3.5); Lipase 53 U/L (8-78); Protein, Total 7.6 g/dL (6.0-8.3)
[2016-08-05 17:17] LABS: Bilirubin Negative (Negative); Blood, Urine Negative (Negative); Glucose, Urine (Dipstick) 500 mg/dL (Negative); Ketone, Urine Negative (Negative); Nitrite Negative (Negative); Protein, Urine (Dipstick) Negative (Neg-Trace); Urobilinogen 0.2 mg/dL (0.2-1.0)
--- NOTE | 2016-08-05 17:48 | PICIS ---
[facility] EMERGENCY RECORD TRIAGE (MonAug 05, 2016 15:25 BDON) TRIAGE NOTES: Diarrhea and pelvis area abdominal pain with nausea. Discharge from hospital last week with diabetic ketoacidios. Did not take blood sugar today. Started taking antiabiotics yesterday. (MonAug 05, 2016 15:25 BDON) PATIENT: NAME: Esther Coyle, AGE: 41, GENDER: female, : Mon1975, TIME OF GREET: MonAug 05, 2016 15:18, PREFERRED LANGUAGE: Portuguese, ETHNICITY: Not or , ECODE BILLING MAP: [facility], SSN: [id number], Zip Code: [address], KG WEIGHT: 83.91, PHONE: , , , PERSON ID: [id number], PCP: Martín Silva, /Ty. (MonAug 05, 2016 15:25 BDON) COMPLAINT: HEADACHE,DIARRHEA,ABDOMINAL PAIN. (MonAug 05, 2016 15:25 BDON) ADMISSION: URGENCY: 2 Emergent, ADMISSION SOURCE: Home, TRANSPORT: Walk-in, BED: TRIAGE. (MonAug 05, 2016 15:25 BDON) ASSESSMENT: Assessment: Abdominal pain with diarrhea, Symptoms began 9 hours ago. (15:26 BDON) PROVIDERS: TRIAGE NURSE: Sonia Romero RN. (MonAug 05, 2016 15:25 BDON) VITAL SIGNS: BP 118/78, Pulse 86, Resp 17, Temp 98.8, (Oral), Pain 4, Time 08/05/2016 15:22. (15:22 BDON) PREVIOUS VISIT ALLERGIES: No Known Drug Allergies. (MonAug 05, 2016 15:25 BDON) No Known Drug Allergies. (15:26 BDON) KNOWN ALLERGIES No Known Drug Allergies CURRENT MEDICATIONS (15:25 BDON) metFORMIN: TABLET : Strength - 500 mg : ORAL Patient Dose: 1000 mg Oral 2 times a day. VITAL SIGNS (15:22 BDON) VITAL SIGNS: BP: 118/78, Pulse: 86, Resp: 17, Temp: 98.8 (Oral), Pain: 4, Time: 08/05/2016 15:22. NURSING ASSESSMENT: ABDOMEN (15:38 BDON) CONSTITUTIONAL: Patient arrives ambulatory, History obtained from patient, Patient appears, uncomfortable, Patient cooperative, Patient alert, Oriented to person, place and time, Skin warm, Skin dry, Skin normal in color. PAIN: diffusely. ABDOMEN: Abdomen assessment findings include abdomen symmetrical, Abdomen, firm, tender, Associated with diarrhea. GENITOURINARY FEMALE: no associated urinary complaints. SAFETY: Cart/Stretcher in lowest position, Hospital ID band on, Patient in view of the nursing station. &a-1R&a+25V*p+0X*z8831Y*c152B*c15G*c2P*p-0X&a-25V&a+1RName: Esther Coyle : F41 MedRec: [id number] AcctNum: [id number] Prepared: MonAug 05, 2016 18:05 by Interface Page 1 of 10 pMD [facility] EMERGENCY RECORD NURSING PLAN OF CARE: Acute Medical Condition:, Patient is able to participate in development and implementation of nursing plan of care for acute medical condition. NURSING PROCEDURE: BEDSIDE TESTING (15:39 BDON) GLUCOSE: Glucose testing indicated for diabetic patient, Venous blood sample, Result (mg/dl) 155. NURSING PROCEDURE: DISCHARGE NOTE (17:46 BDON) DISCHARGE: Patient discharged to home, ambulating without assistance, Summary of Care printed/ provided, Patient requested and was provided an electronic copy of Discharge Instructions, Transition record given to patient, Discharge instructions given to patient, Simple or moderate discharge teaching performed, Prescriptions given and instructions on side effects given, Medication reconciliation form given, Above person(s) verbalized understanding of discharge instructions and follow-up care, Patient treated and evaluated by physician. SAFETY: Hospital ID band on. NURSING PROCEDURE: NURSE NOTES NURSES NOTES: Notes: Refuses IV but agrees to lab draw, [facility] called. (15:41 BDON) Patient assisted to bathroom with steady gait. (16:35 BDON) Patient is awaiting results. (16:58 BDON) Patient is awaiting results. (17:08 BDON) ORDER DETAILS Order Name: BLOOD GLUCOSE MONITOR, Status: Done, Time: 15:54 08/05/2016, User: BDON, - Ordered for: MD Rhoades John, - Entered by: DEB Romero Bettye - MonAug 05, 2016 15:53, - Quantity: 1, Order Name: CBC with Differential, Status: Active, Time: 15:36 08/05/2016, User: JEREMIAH, - Ordered for: MD Rhoades John, - Entered by: MD Rhoades John - MonAug 05, 2016 15:36, - Quantity: 1, Order Name: Comprehensive Metabolic Panel, Status: Active, Time: 15:36 08/05/2016, User: JEREMIAH, - Ordered for: MD Rhoades John, - Entered by: MD Rhoades John - MonAug 05, 2016 15:36, - Quantity: 1, Order Name: CT Abdomen Pelvis W Con, Status: Canceled, Time: 16:22 08/05/2016, User: System, - Ordered for: MD Rhoades John, - Entered by: MD Rhoades John - MonAug 05, 2016 15:36, - Quantity: 1, Order Name: CT Abdomen Pelvis WO Con, Status: Canceled, Time: 16:22 &a-1R&a+25V*p+0X*t3247U*c152B*c15G*c2P*p-0X&a-25V&a+1RName: Esther Coyle : F41 MedRec: [id number] AcctNum: [id number] Prepared: MonAug 05, 2016 18:05 by Interface Page 2 of 10 [facility] EMERGENCY RECORD 08/05/2016, User: System, - Ordered for: MD Rhoades John, - Entered by: MD Rhoades John - MonAug 05, 2016 15:39, - Quantity: 1, Order Name: ERRT Pulse Oximeter ER, Status: Active, Time: 15:36 08/05/2016, User: JEREMIAH, - Ordered for: MD Rhoades John, - Entered by: MD Rhoades John - MonAug 05, 2016 15:36, - Quantity: 1, Order Name: Lipase, Status: Active, Time: 15:36 08/05/2016, User: JEREMIAH, - Ordered for: MD Rhoades John, - Entered by: MD Rhoades John - [facility] Aug 05, 2016 15:36, - Quantity: 1, Order Name: Test, Urine (BHCG), Status: Active, Time: 15:36 08/05/2016, User: JEREMIAH, - Ordered for: MD Rhoades John, - Entered by: MD Rhoades John - [facility] Aug 05, 2016 15:36, - Quantity: 1, Order Name: SALINE LOCK, Status: Canceled, Time: 15:45 08/05/2016, User: [facility], - Ordered for: MD Rhoades John, - Entered by: MD Rhoades John - [facility] Aug 05, 2016 15:36, - Reason for Cancel: Pt refusing., - Quantity: 1, Order Name: Urinalysis w/ Rflx Microscopic, Status: Active, Time: 15:36 08/05/2016, User: JEREMIAH, - Ordered for: MD Rohades John, - Entered by: MD Rhoades John - MonAug 05, 2016 15:36, - Quantity: 1. MEDICATION ADMINISTRATION SUMMARY Drug Name: Protonix oral, Dose Ordered: 40 mg, Route: Oral, Status: Given, Time: 15:55 08/05/2016, Drug Name: Tylenol, Dose Ordered: 650 mg, Route: Oral, Status: Given, Time: 15:54 08/05/2016, Drug Name: Zofran ODT, Dose Ordered: 4 mg, Route: Oral, Status: Given, Time: 15:50 08/05/2016, Detailed record available in Medication Service section. MEDICATION SERVICE Protonix oral: Order: Protonix oral (pantoprazole sodium) - Dose: 40 mg : Oral Schedule: Now Ordered by: Paul Rhoades MD Entered by: Paul Rhoades MD MonAug 05, 2016 15:39 , Acknowledged by: Estelle Kaufman RN MonAug 05, 2016 15:45 Documented as given by: Sonia Romero RN MonAug 05, 2016 15:55 Patient, Medication, Dose, Route and Time verified prior to administration. Amount given: 40 mg, Site: Medication administered P.O., &a-1R&a+25V*p+0X*p2347R*c152B*c15G*c2P*p-0X&a-25V&a+1RName: Esther Coyle : F41 MedRec: [id number] AcctNum: [id number] Prepared: MonAug 05, 2016 18:05 by Interface Page 3 of 10 pMD [facility] EMERGENCY RECORD Administered by DEB Mccabe, Patient in position of comfort, Side rails up, Cart in lowest position, Family at bedside, Call light in reach. Tylenol: Order: Tylenol (acetaminophen) - Dose: 650 mg : Oral Schedule: Now Ordered by: Paul Rhoades MD Entered by: Paul Rhoades MD MonAug 05, 2016 15:38 , Acknowledged by: Estelle Kaufman RN MonAug 05, 2016 15:45 Documented as given by: Sonia Romero RN MonAug 05, 2016 15:54 Patient, Medication, Dose, Route and Time verified prior to administration. Amount given: 650 mg, Site: Medication administered P.O., Correct patient, time, route, dose and medication confirmed prior to administration, Patient advised of actions and side-effects prior to administration, Allergies confirmed and medications reviewed prior to administration, Patient tolerated procedure well, Administered by DEB Mccabe, Patient in position of comfort, Side rails up, Cart in lowest position, Family at bedside, Call light in reach. Zofran ODT: Order: Zofran ODT (ondansetron) - Dose: 4 mg : Oral Schedule: Now Ordered by: Paul Rhoades MD Entered by: Paul Rhoades MD MonAug 05, 2016 15:37 , Acknowledged by: Estelle Kaufman RN MonAug 05, 2016 15:45 Documented as given by: Sonia Romero RN MonAug 05, 2016 15:50 Patient, Medication, Dose, Route and Time verified prior to administration. Amount given: 4mg, Site: Medication administered S.L., Administered by DEB Mccabe, Patient in position of comfort, Side rails up, Cart in lowest position, Family at bedside, Call light in reach. HPI ABDOMINAL PAIN (16:43 JOHE) CHIEF COMPLAINTS: Patient presents for evaluation of abdominal pain. HISTORIAN: History provided by patient, Pt. reports since around about 0700 this morning, patient reports crampy, intermittent lower abdominal pain now moved to the upper abdomen, associated with watery diarrhea and nausea. Patient reports subjective F&C this morning also but did not take her temperature. No exacerbating/reliving factors noted. Patient does report some dysuria and mild increased frequency of urination. She denies vomiting, hematochezia, melena, vaginal discharge and bleeding, and other symptoms. LMP was 3-4 weeks ago. No trauma, travel or change in diet. Patient states she was hospitalized at [facility] and discharged last week with similar complaints, and had DKA, but no cause for her abdominal pain found. Patient states she was discharged with some antibiotics, but did not get the script filled until yesterday, and has not yet taken any. LOCATION FEMALE: Symptoms are localized, most severe in the lower abdomen, no radiation, Migration of pain over time to, the left upper quadrant, the right upper &a-1R&a+25V*p+0X*r5303W*c152B*c15G*c2P*p-0X&a-25V&a+1RName: CoyleDemarcus rothmanna : F41 MedRec: [id number] AcctNum: [id number] Prepared: MonAug 05, 2016 18:05 by Interface Page 4 of 10 pMD [facility] EMERGENCY RECORD quadrant. QUALITY: Pain is dull in nature, described as cramping, Described as similar to previous episodes. SEVERITY: Maximum severity of symptoms moderate, Currently symptoms are moderate. TIME COURSE: Sudden onset of symptoms, Symptoms are intermittent, There has been no change in the patient's symptoms over time. ASSOCIATED WITH FEMALE: No associated recent antibiotic use, No associated bright red blood per rectum, Associated with chills, No associated constipation, Associated with diarrhea, Associated with fever, subjective, No associated flank pain, No associated groin pain, No associated hematemesis, No associated hematuria, Associated with loss of appetite, No associated melena, Associated with nausea, No associated night sweats, No associated trauma, No associated recent travel, No associated inability to tolerate oral intake, No associated urinary tract infection signs or symptoms, No associated vomiting, No associated vaginal discharge, No associated vaginal bleeding, No associated weight change, Denies any other complaints. RELIEVED BY: Patient's condition relieved by nothing because patient has not tried anything for relief. EXACERBATED BY: Patient's condition exacerbated by nothing. RISK FACTORS FEMALE: Ectopic risk factors:, no current intrauterine device, no history of infertility treatment, no history of pelvic inflammatory disease, no history of prior ectopic, no history of tubal ligation, no history of tubal surgery, no recent pelvic procedure, Abdominal aortic aneurysm risk factors, no connective tissue disorders, no Abran Danlos syndrome, no first degree relative, no Marfan's syndrome, include age over 40 years, no history of abdominal aortic aneurysm, Coronary artery disease risk factors, no known coronary artery disease, no diabetes, no high cholesterol, no hypertension, include smoking. ROS (16:49 JOHE) CONSTITUTIONAL: Historian reports chills, reports fever, denies lethargy, denies malaise, denies night sweats, denies weight loss. EYES: Historian denies eye pain, denies vision changes. ENT: Historian denies otalgia, denies rhinorrhea, denies sore throat. CARDIOVASCULAR: Historian denies chest pain, denies syncope, denies palpitations. RESPIRATORY: Historian denies cough, denies shortness of breath, denies wheezing. GI: Historian reports abdominal pain, reports appetite changes, denies constipation, reports diarrhea, denies hematemesis, denies hematochezia, denies melena, reports nausea, denies vomiting. GENITOURINARY FEMALE: Historian reports dysuria, reports frequency, denies hematuria, denies urgency, denies &a-1R&a+25V*p+0X*f5224U*c152B*c15G*c2P*p-0X&a-25V&a+1RName: Esther Coyle : F41 MedRec: [id number] AcctNum: [id number] Prepared: MonAug 05, 2016 18:05 by Interface Page 5 of 10 pMD [facility] EMERGENCY RECORD urine output changes. MUSCULOSKELETAL: Historian denies arthralgias, denies back pain, denies myalgias, denies neck pain. SKIN: Historian denies rash, denies skin changes. NEUROLOGIC: Historian denies confusion, denies dizziness, denies focal weakness, reports headache, denies paralysis, denies seizures. NOTES: All systems reviewed, negative except as described above. PAST MEDICAL HISTORY (15:26 BDON) MEDICAL HISTORY: Tetanus immunization up to date, : DJD, Past medical history includes musculoskeletal disorder, Flu vaccine not up to amisha, Pneumococcal vaccine not up to date, Past medical history includes history of diabetes, Type II, high cholesterol. Notes: HISTORY OF BACK PROBLEMS - DISC PROBLEMS. FEMALE SURGICAL HISTORY: Surgical history of appendectomy, Surgical history of cholecystectomy. . SOCIAL HISTORY: Patient drinks socially, Patient denies drug use, Patient currently uses tobacco, Patient smokes cigarettes,. PHYSICAL EXAM (16:50 JOHE) CONSTITUTIONAL: Vital Signs Reviewed, Patient alert and oriented to person, place and time. HEAD: Head exam normal, Head exam included findings of head atraumatic, normocephalic. EYES: Eye exam normal, Eye exam included findings of eyelids normal to inspection, Pupils equally round and reactive to light, Extraocular muscles intact, Conjunctiva normal, Sclera normal. ENT: ENT exam normal, Pharynx exam normal, not injected, no swelling, symmetrical, Uvula exam normal, midline, no edema, Tonsil exam normal, not enlarged, no exudates, Mouth exam normal, mucous membranes moist, no drooling, no lesions, no lacerations, no tongue elevation. NECK: Neck exam normal, Neck exam included findings of normal range of motion, Trachea midline, no carotid bruits. RESPIRATORY CHEST: Respiratory and chest exam normal, Respiratory exam included findings of no respiratory distress, Breath sounds clear, No wheezing, No rales, No rhonchi, Breath sounds not absent, Breath sounds not diminished, Chest exam included findings of chest movement symmetrical, CTAB. CARDIOVASCULAR: Cardiovascular assessment normal, Cardiovascular exam included findings of heart rate regular rate and rhythm, Heart sounds normal, Carotids normal, Pedal pulses normal, RRR, no R/M/G. + pulses all ext., no bruits, no edema. ABDOMEN FEMALE: no mass, no pulsatile masses, no peritoneal signs, no rigidity, no guarding, no rebound, Soft, ND, mildly TTP diffusely without guarding or rebound TTP. + BS. No palpable masses, no CVAT. BACK: Back exam normal, Back exam included findings of normal inspection, range of motion normal, no tenderness, no costovertebral &a-1R&a+25V*p+0X*t6096Z*c152B*c15G*c2P*p-0X&a-25V&a+1RName: Esther Coyle : F41 MedRec: [id number] AcctNum: [id number] Prepared: MonAug 05, 2016 18:05 by Interface Page 6 of 10 pMD [facility] EMERGENCY RECORD angle tenderness. UPPER EXTREMITY: Upper extremity exam normal, Upper extremity exam included findings of inspection normal, Range of motion normal, Radial pulse normal. LOWER EXTREMITY: Lower extremity exam normal, Lower extremity exam included findings of inspection normal, Range of motion normal, Posterior tibial pulse normal, Pedal pulse normal, no edema. NEURO: Neuro exam normal, Kristen coma scale 15, Neuro exam findings include patient oriented to person, place and time, Speech normal, Gait normal, Cranial nerves intact, no focal motor deficits, no focal sensory deficits. SKIN: Skin exam normal, Skin exam included findings of skin warm, dry, and normal in color, no rash. LAB INTERPRETATION (17:43 JOHE) INTERPRETATION: I reviewed the lab results, All labs normal except as noted below, CBC normal, Chemistry abnormal, Glucose elevated, Bicarbonate decreased, Urinalysis abnormal, positive for glucose, Urine HCG negative. EVENTS TRANSFER: Triage to Emergency Triage. (MonAug 05, 2016 15:25 BDON) Emergency Triage to Emergency Room -04. (15:25 BDON) Removed from Emergency Emergency Room -04. (17:56 BDON) DOCTOR NOTES RE-EVALUATION: The patient's condition has improved. (17:38 JOHE) TEXT: Patient had normal CT scans of abdomen and pelvis on 07/24, and 07/26/16, and she reports her pain now is same as the pain she was having then. Discussed with patient risks and benefits of further abdominal imaging with patient (radiation exposure, contrast dye, etc), and patient refuses at this time. Patient also refused IV insertion. Will check labs, use oral medications as patient does not appear to have a surgical abdomen, and re-assess. (16:17 JOHE) Still awaiting UA and UPT. (17:19 JOHE) Discussed results with patient, who reports pain improved, nausea gone. Patient feels well enough, wants to go home and start the antibiotics given to her (levaquin) at hospital discharge. As she appears well, with stable vitals, and labs, and non-surgical abdomen, will d/c home. now reports he had diarrhea and was seen here a couple days ago as well. Discussed PO fluid intake to avoid dehydration, continuing medications, need for close outpatient f/u on Monday, and warning signs for immediate return to ED. Pt. and family verbalized understanding and agreed to f/u or return to ED. On repeat exam, abd. soft, ND, mildly TTP epigastrium, and BLQ without guarding or rebound, + BS. (17:38 JOHE) DATA REVIEWED: Lab data reviewed. (17:38 JOHE) PROBLEM LIST &a-1R&a+25V*p+0X*n2739Q*c152B*c15G*c2P*p-0X&a-25V&a+1RName: Esther Coyle : F41 MedRec: [id number] AcctNum: [id number] Prepared: MonAug 05, 2016 18:05 by Interface Page 7 of 10 pMD [facility] EMERGENCY RECORD No recorded problems DIAGNOSIS (17:33 JOHE) FINAL: PRIMARY: abdominal pain, ADDITIONAL: diarrhea, presumed infectious. DISPOSITION PATIENT: Disposition Type: Discharge, Disposition: *Discharge Home, Condition: Good. (17:33 JOHE) Patient left the department. (17:56 BDON) INSTRUCTION (17:35 JOHE) DISCHARGE: ABDOMINAL PAIN, UNKNOWN CAUSE, (FEMALE), VIRAL DIARRHEA ADULT. FOLLOWUP: [facility], /[facility], [address] [place] [address], , [place], [place], Gastroenterology, [address] [place] [address], [phone], Follow up with Primary Care Physician in 2-3 days, Follow up with Specialist as soon as possible. SPECIAL: Follow-up with your PCP. PRESCRIPTION (17:34 JOHE) Phenergan oral: TABLET : 25 mg : ORAL : Quantity: 1 Unit: tab(s) Route: ORAL Schedule: every 6 hours PRN Dispense: 10 Unit: tab(s) May substitute. Refills: No Refills . NOTES: No Refills. Pepcid oral: TABLET : 40 mg : ORAL : Quantity: 1 Unit: tab(s) Route: ORAL Schedule: once a day (in the morning) Dispense: 15 Unit: tab(s) May substitute. Refills: No Refills . NOTES: No Refills. IMAGING *DISCHARGE INSTRUCTIONS RECEIPT: Image captured from scanner. (17:54 BDON) *SUPPLY CHARGE SHEET: Image captured from scanner. (17:55 BDON) ADMIN DIGITAL SIGNATURE: MD Verona, Paul. (17:44 JOHE) DEB Romero, Sonia. (17:56 BDON) RESULTS LABORATORY: Accuchek Collection DT: MonAug 05, 2016 15:44, *Accuchek 155 - H mg/dL, Range (70-110). (15:53 JOHE) Lipase Collection DT: MonAug 05, 2016 16:07, Lipase 53 U/L, Range (8-78). (16:27 JOHE) Comprehensive Metabolic Panel Collection DT: MonAug 05, 2016 16:07, *Sodium 135 - L mmol/L, Range (136-145), Potassium 5.1 mmol/L, Range (3.5-5.1), &a-1R&a+25V*p+0X*p7781G*c152B*c15G*c2P*p-0X&a-25V&a+1RName: Esther Coyle : F41 MedRec: [id number] AcctNum: [id number] Prepared: MonAug 05, 2016 18:05 by Interface Page 8 of 10 pMD [facility] EMERGENCY RECORD Chloride 105 mmol/L, Range (98-107), *Carbon Dioxide 20 - L mmol/L, Range (22-29), Anion Gap 15 mmol/L, Range (10-20), BUN (Urea Nitrogen) 18 mg/dL, Range (7.0-18.7), Creatinine 0.87 mg/dL, Range (0.6-1.1), Estimated GFR-MDRD 86 , Reference Range for Estimated GFR: Greater than 90, mL/min/1.73 m2 NOTE: The MDRD equation has not been validated for use, with the elderly (over 70 years of age), women, patients with, serious comorbid condition or persons with extremes of body size, muscle, mass, or nutritional status. , *Glucose 176 - H mg/dL, Range (70-105), Calcium 9.3 mg/dL, Range (7.8-10.44), Bilirubin, Total 0.4 mg/dL, Range (0.2-1.2), Protein, Total 7.6 g/dL, Range (6.0-8.3), NOTE: Plasma values are generally 0.3 to 0.5 g/dL higher than serum values, due to the presence of fibrinogen. , Albumin 4.2 g/dL, Range (3.5-5.0), Globulin 3.4 g/dL, Range (2.4-3.5), Alb/Glob Ratio 1.2 g/dL, Range (1.2-2.2), Alkaline Phosphatase 74 U/L, Range (40-150), AST (SGOT) 17 U/L, Range (5-34), ALT (SGPT) 15 U/L, Range (0-55). (16:27 [facility]) CBC with Differential Collection DT: MonAug 05, 2016 16:07, White Blood Cell (WBC) Count 6.1 thou/uL, Range (4.8-10.8), Red Blood Cell (RBC) Count 4.86 mill/uL, Range (4.20-5.40), Hemoglobin 12.7 g/dL, Range (12.0-16.0), Hematocrit 42.0 %, Range (36.0-47.0), Mean Corpuscular Volume 86.4 fl, Range (81.0-99.0), *Mean Corpuscular Hemoglobin 26.0 - L pg, Range (27.0-31.0), *Mean Corpuscular HGB CONC 30.2 - L g/dL, Range (32.0-36.0), RBC Distribution Width 13.6 %, Range (11.5-14.5), Platelet Count 331 thou/uL, Range (130-400), *Mean Platelet Volume 7.2 - L fL, Range (7.4-10.4), %Neutrophils 70.2 %, Range (42.0-75.0), *%Lymphocytes 17.3 - L %, Range (21.0-51.0), %Monocytes 7.9 %, Range (0.0-10.0), %Eosinophils 4.0 %, Range (0.0-10.0), %Basophils 0.6 %, Range (0.0-1.0), #Neutrophils 4.3 thou/uL, Range (1.40-6.50), *#Lymphocytes 1.1 - L thou/uL, Range (1.20-3.40), #Monocytes 0.5 thou/uL, Range (0.11-0.59), #Eosinphils 0.2 thou/uL, Range (0.0-0.7), #Basophils 0.0 thou/uL, Range (0.0-0.2). (16:27 [facility]) Urinalysis w/ Rflx Microscopic Observe DT: MonAug 05, 2016 16:45, Color Yellow , Range (Yellow), Clarity SL HAZY , Range (Clear), Specific [place], Urine 1.025 , Range (1.005-1.030), &a-1R&a+25V*p+0X*u2059E*c152B*c15G*c2P*p-0X&a-25V&a+1RName: Esther Coyle : F41 MedRec: [id number] AcctNum: [id number] Prepared: MonAug 05, 2016 18:05 by Interface Page 9 of 10 pMD [facility] EMERGENCY RECORD pH, Urine 5.5 , Range (5.0-9.0), Leukocyte Negative , Range (Negative), Nitrite Negative , Range (Negative), Protein, Urine (Dipstick) Negative mg/dL, Range (Neg-Trace), *Glucose, Urine (Dipstick) 500 - H mg/dL, Range (Negative), Ketone, Urine Negative mg/dL, Range (Negative), Urobilinogen 0.2 mg/dL, Range (0.2-1.0), Bilirubin Negative , Range (Negative), Blood, Urine Negative , Range (Negative). (17:24 JREEMIAH) Test, Urine (BHCG) Observe DT: MonAug 05, 2016 16:50, Test - Urine (BHCG) NEGATIVE , Range (NEGATIVE), Method of sensitivity- Indeterminant: results should be repeated, after 48 hours. Positive: results may be detected as early as 4-5 days before a first missed menses. Elimination of BHCG-, Elimination following first trimester D&C: 29-44 Days , Elimination following term : 8-24 Days , Specific [place] 1.025 , Range (1.002-1.036), A dilute urine specimen may, not contain direct customer service representative levels of hCG. If is still, suspected, a first morning urine specimen OR a random blood specimen should, be obtained from the patient 48-72 hours later and re-tested. , . (17:24 JEREMIAH) Peter: ANABELLA=DEB Romero, Sonia DANIELS=MD Verona, Paul &a-1R&a+25V*p+0X*n3968C*c152B*c15G*c2P*p-0X&a-25V&a+1RName: Esther Coyle : F41 MedRec: [id number] AcctNum: [id number] Prepared: MonAug 05, 2016 18:05 by Interface Page 10 of 10 pMD [facility]TDD
== END 2016-08-05 17:46 | disposition home or self-care (01) ==
LOC: NAV ERS 15:18
DX: R10.30 Lower abdominal pain, unspecified (principal); R19.7 Diarrhea, unspecified; R10.12 Left upper quadrant pain; R10.11 Right upper quadrant pain; E11.9 Type 2 diabetes mellitus without complications; F17.210 Nicotine dependence, cigarettes, uncomplicated; Z79.84 Long term (current) use of oral hypoglycemic drugs
CPT/HCPCS: 36416; 80053; 81003; 81025; 83690; 85025; 94760; Q0162

== ENCOUNTER 2016-10-03 13:30 | Emergency (ER) | payer OTHER ==
[2016-10-03] MEDS ORDERED: Cyclobenzaprine 10 MG TAB ONE (13:58)
[2016-10-03] MEDS ORDERED: Acetaminophen/Codeine 30-300mg Tablet ONE (13:58)
[2016-10-03 14:10] LABS: Bilirubin Negative (Negative); Blood, Urine Negative (Negative); Clarity Clear (Clear); Glucose, Urine (Dipstick) 500 mg/dL (Negative); Leukocyte Negative (Negative); Nitrite Negative (Negative); Pregu Control Bar Appear? YES (CONTROL BAR); Protein, Urine (Dipstick) Negative (Neg-Trace); Urobilinogen 0.2 mg/dL (0.2-1.0); pH, Urine 5.5 (5.0-9.0)
== END 2016-10-03 14:46 | disposition home or self-care (01) ==
LOC: NAV ERS 13:30
DX: S39.012A Strain of muscle, fascia and tendon of lower back, initial encounter (principal); E11.65 Type 2 diabetes mellitus with hyperglycemia; E78.00 Pure hypercholesterolemia, unspecified; F17.210 Nicotine dependence, cigarettes, uncomplicated; X50.9XXA Other and unspecified overexertion or strenuous movements or postures, initial encounter
CPT/HCPCS: 36416; 81003; 81025; 99283

== ENCOUNTER 2016-10-28 06:39 | Emergency (ER) | payer OTHER, SELFPAY ==
[2016-10-28] MEDS ORDERED: AMOXicillin 250 MG CAP ONE (07:03)
[2016-10-28] MEDS ORDERED: Ketorolac Tromethamine 60 MG/2 ML VIAL ONE (07:04)
[2016-10-28] MEDS ORDERED: HYDROcodone/Acetaminophen 5/325 mg Tablet ONE (07:04)
== END 2016-10-28 07:22 | disposition home or self-care (01) ==
LOC: NAV ERS 06:39
DX: K02.9 Dental caries, unspecified (principal); E11.9 Type 2 diabetes mellitus without complications; E78.00 Pure hypercholesterolemia, unspecified; F17.210 Nicotine dependence, cigarettes, uncomplicated; Z79.84 Long term (current) use of oral hypoglycemic drugs
CPT/HCPCS: 96372; J1885

== ENCOUNTER 2016-12-13 12:12 | Emergency (ER) | payer SELFPAY ==
[2016-12-13] MEDS ORDERED: Acetaminophen 500 MG TAB ONE (13:11)
[2016-12-13] MEDS ORDERED: Ketorolac Tromethamine 30 MG/ML VIAL ONE (13:11)
[2016-12-13] MEDS ORDERED: Cyclobenzaprine 10 MG TAB ONE (13:11)
== END 2016-12-13 14:04 | disposition home or self-care (01) ==
LOC: NAV ERS 12:12
DX: M54.42 Lumbago with sciatica, left side (principal); E11.9 Type 2 diabetes mellitus without complications; E78.00 Pure hypercholesterolemia, unspecified; F17.210 Nicotine dependence, cigarettes, uncomplicated
CPT/HCPCS: 96372; J1885

== ENCOUNTER 2016-12-17 09:09 | Emergency (ER) | payer SELFPAY ==
[2016-12-17 10:13] LABS: #Eosinphils 0.2 thou/uL (0.0-0.7); #Lymphocytes 1.9 thou/uL (1.20-3.40); #Monocytes 0.4 thou/uL (0.11-0.59); #Neutrophils 3.6 thou/uL (1.40-6.50); %Basophils 0.8 % (0.0-1.0); %Eosinophils 3.4 % (0.0-10.0); %Lymphocytes 29.8 % (21.0-51.0); %Neutrophils 58.9 % (42.0-75.0); Hemoglobin 11.4 g/dL (12.0-16.0); Mean Corpuscular HGB CONC 30.8 g/dL (32.0-36.0); Mean Corpuscular Volume 84.4 fl (81.0-99.0); Mean Platelet Volume 8.9 fL (7.4-10.4); Platelet Count 198 thou/uL (130-400); RBC Distribution Width 13.7 % (11.5-14.5); Red Blood Cell (RBC) Count 4.39 mill/uL (4.20-5.40); White Blood Cell (WBC) Count 6.2 thou/uL (4.8-10.8)
[2016-12-17] MEDS ORDERED: HYDROcodone/Acetaminophen 10/325 mg Tablet ONE (10:25)
[2016-12-17] MEDS ORDERED: Ibuprofen 800 MG TAB ONE (10:26)
[2016-12-17 10:36] LABS: ALT (SGPT) 10 U/L (8-55); AST (SGOT) 15 U/L (5-34); Albumin 3.9 g/dL (3.5-5.0); Alkaline Phosphatase 86 U/L (40-150); Anion Gap 15 mmol/L (10-20); BUN (Urea Nitrogen) 12 mg/dL (7.0-18.7); Bilirubin, Total 0.3 mg/dL (0.2-1.2); Calc. Creatinine Clearance 0 mL/min (70-130); Calcium 9.5 mg/dL (7.8-10.44); Carbon Dioxide 19 mmol/L (22-29); Chloride 103 mmol/L (98-107); Estimated GFR-MDRD 77; Globulin 3.2 g/dL (2.4-3.5); Glucose 301 mg/dL (70-105); Potassium 4.3 mmol/L (3.5-5.1); Protein, Total 7.1 g/dL (6.0-8.3); Sodium 133 mmol/L (136-145)
--- NOTE | 2016-12-17 13:10 | RAD ---
RADIOGRAPH LEFT HIP 2 VIEWS: Date: 12/17/16 HISTORY: 41-year-old female with left hip pain. No mention of trauma. FINDINGS: There is no fracture or dislocation. Joint space is maintained. No subcapital osteophytes. IMPRESSION: Negative. POS: [facility]
--- NOTE | 2016-12-17 13:19 | CT ---
CT LUMBAR SPINE WITHOUT IV CONTRAST: Date: 12/17/16 HISTORY: Chronic back pain radiating into left knee. TECHNIQUE: Contiguous axial CT images are obtained through the lumbar spine from the T11 vertebral body to the upper sacrum. Sagittal and coronal reformatted images are provided. COMPARISON: 12/07/11. FINDINGS: Lumbar vertebral body heights are maintained. There is no fracture or subluxation. End plate degener ative changes are again seen at the lumbosacral junction. L1-2 Level: There is no significant disc bulge or disc herniation. Central spinal canal and neural foramina are patent. L2-3 Level: There is no disc bulge or disc herniation. Central spinal canal and neural foramina are patent. L3-4 Level: There is no significant disc bulge or disc herniation. Central spinal canal and neural foramina are patent. L4-5 Level: There is a minimal broad based disc bulge with left foraminal disc protrusion, also present on the p rior exam. However, there is no significant left-sided neural foraminal narrowing. The right neural foramen and central spinal canal are patent. L5-S1 Level: Again, there are disc degenerative changes with evidence of vacuum phenomenon and loss of interverte bral disc height. End plate degenerative changes are also similar to the prior exam. There is a broa d based disc osteophyte complex present at this level, which does contact the thecal sac and results in slight flattening. There is mild bilateral neural foraminal narrowing. The S1 nerve roots, as th ey exit the thecal sac, are not well visualized due to CT imaging. The broad based disc bulge could potentially contact the exiting bilateral S1 nerve roots. Findings are unchanged when compared to th e prior exam. Vascular calcifications are seen in the abdominal aorta. Surgical clips are seen in the right lower quadrant. IMPRESSION: 1. Stable CT scan of the lumbar spine with disc degenerative change seen in the lower lumbar spine at the L4-5 and L5-S1 levels. 2. No fracture or subluxation involving the lumbar spine. POS: [facility]
--- NOTE | 2016-12-17 13:46 | CT ---
CT LEFT HIP WITHOUT IV CONTRAST: Date: 12/17/16 HISTORY: Left hip bursitis. Patient has chronic back pain radiating to the left knee. TECHNIQUE: Contiguous axial CT images are obtained through the left hip without IV contrast. Sagittal and coron al reformatted images are provided. FINDINGS: There is no fracture or dislocation involving the left hip. No joint effusion is appreciated on this examination. The regional musculature about the left hip has a normal nonenhanced CT appearance. Th ere is no subcutaneous edema or fluid collection identified. IMPRESSION: No fracture or dislocation involving the left hip. POS: [facility]
== END 2016-12-17 12:19 | disposition home or self-care (01) ==
LOC: NAV ERS 09:09
DX: M54.16 Radiculopathy, lumbar region (principal); E11.9 Type 2 diabetes mellitus without complications; E78.00 Pure hypercholesterolemia, unspecified; F17.210 Nicotine dependence, cigarettes, uncomplicated; Z79.899 Other long term (current) drug therapy
CPT/HCPCS: 36415; 72131; 80053; 85025; 85652; 86140

== ENCOUNTER 2017-04-25 17:13 | Emergency (ER) | payer MEDICAID, SELFPAY ==
[2017-04-25] MEDS ORDERED: Acetaminophen/Codeine 30-300mg Tablet ONE (17:58)
== END 2017-04-25 18:15 | disposition home or self-care (01) ==
LOC: NAV ERS 17:13
DX: M54.16 Radiculopathy, lumbar region (principal); E11.9 Type 2 diabetes mellitus without complications; E78.00 Pure hypercholesterolemia, unspecified; F17.210 Nicotine dependence, cigarettes, uncomplicated; Z79.4 Long term (current) use of insulin; Z79.899 Other long term (current) drug therapy
CPT/HCPCS: 99283

== ENCOUNTER 2017-05-10 14:45 | Emergency (ER) | payer MEDICAID ==
[2017-05-10] MEDS ORDERED: Ketorolac Tromethamine 60 MG/2 ML VIAL ONE (15:13)
[2017-05-10] MEDS ORDERED: Dexamethasone 20 MG/5 ML VIAL ONE (15:13)
== END 2017-05-10 15:35 | disposition home or self-care (01) ==
LOC: NAV ERS 14:45
DX: M54.41 Lumbago with sciatica, right side (principal); E11.9 Type 2 diabetes mellitus without complications; F17.210 Nicotine dependence, cigarettes, uncomplicated; Z79.899 Other long term (current) drug therapy; Z79.4 Long term (current) use of insulin
CPT/HCPCS: 96372; J1100; J1885

== ENCOUNTER 2017-10-11 17:43 | Emergency (ER) | payer OTHER, SELFPAY ==
[2017-10-11] MEDS ORDERED: Ketorolac Tromethamine 60 MG/2 ML VIAL ONE (18:19)
== END 2017-10-11 18:55 | disposition home or self-care (01) ==
LOC: NAV ERS 17:43
DX: M54.41 Lumbago with sciatica, right side (principal); M54.42 Lumbago with sciatica, left side; M19.90 Unspecified osteoarthritis, unspecified site; E11.9 Type 2 diabetes mellitus without complications; E78.00 Pure hypercholesterolemia, unspecified; F17.210 Nicotine dependence, cigarettes, uncomplicated; Z79.899 Other long term (current) drug therapy; Z79.84 Long term (current) use of oral hypoglycemic drugs
CPT/HCPCS: 96372; J1885

== ENCOUNTER 2017-10-17 12:11 | Emergency (ER) | payer SELFPAY ==
[2017-10-17] MEDS ORDERED: Bupivacaine 0.5% 10 ML VIAL ONE (12:35)
[2017-10-17] MEDS ORDERED: Lidocaine 1% 20 ML MDV ONE (12:35)
== END 2017-10-17 12:54 ==
LOC: NAV ERS 12:11
DX: K03.81 Cracked tooth (principal); K02.9 Dental caries, unspecified; I10 Essential (primary) hypertension; E11.9 Type 2 diabetes mellitus without complications; E78.00 Pure hypercholesterolemia, unspecified; F41.9 Anxiety disorder, unspecified; F17.210 Nicotine dependence, cigarettes, uncomplicated; Z79.899 Other long term (current) drug therapy; Z79.84 Long term (current) use of oral hypoglycemic drugs
CPT/HCPCS: 64400; J2001; J3490

== ENCOUNTER 2018-08-27 08:12 | Emergency (ER) | payer OTHER, SELFPAY | END 2018-08-27 08:40 | disposition home or self-care (01) | LOC: NAV ERS 08:12 | DX: J06.9 Acute upper respiratory infection, unspecified (principal); E11.9 Type 2 diabetes mellitus without complications; F41.9 Anxiety disorder, unspecified; F17.210 Nicotine dependence, cigarettes, uncomplicated; Z79.899 Other long term (current) drug therapy; Z79.84 Long term (current) use of oral hypoglycemic drugs; Z79.4 Long term (current) use of insulin | CPT/HCPCS: 99281 ==

== ENCOUNTER 2021-10-31 09:45 | Emergency (ER) | payer OTHER, SELFPAY | END 2021-10-31 10:40 | disposition home or self-care (01) | LOC: NAV ERS 09:45 | DX: L03.031 Cellulitis of right toe (principal); I10 Essential (primary) hypertension; E11.9 Type 2 diabetes mellitus without complications; E78.00 Pure hypercholesterolemia, unspecified; F17.210 Nicotine dependence, cigarettes, uncomplicated; Z79.899 Other long term (current) drug therapy; Z79.84 Long term (current) use of oral hypoglycemic drugs | CPT/HCPCS: 10060; 87070; 87077; 87186; 87205 ==

== ENCOUNTER 2023-06-19 11:23 | Outpatient (CLI) | payer OTHER | END 2023-06-19 11:24 | disposition home or self-care (01) | LOC: NAV RAD 11:23 | PROVIDERS: ATTEND Family Medicine | DX: S46.001A Unspecified injury of muscle(s) and tendon(s) of the rotator cuff of right shoulder, initial encounter (principal); M51.36 Other intervertebral disc degeneration, lumbar region; M47.817 Spondylosis without myelopathy or radiculopathy, lumbosacral region; K59.00 Constipation, unspecified | CPT/HCPCS: 72100 ==

== ENCOUNTER 2023-08-15 09:50 | Emergency (ER) | payer OTHER, SELFPAY ==
[2023-08-15] MEDS ORDERED: HYDROcodone/Acetaminophen 5/325 mg Tablet ONE (10:49)
== END 2023-08-15 12:11 | disposition home or self-care (01) ==
LOC: NAV ERS 09:50
DX: S16.1XXA Strain of muscle, fascia and tendon at neck level, initial encounter (principal); S39.012A Strain of muscle, fascia and tendon of lower back, initial encounter; S29.012A Strain of muscle and tendon of back wall of thorax, initial encounter; S70.01XA Contusion of right hip, initial encounter; S40.011A Contusion of right shoulder, initial encounter; M47.9 Spondylosis, unspecified; M89.9 Disorder of bone, unspecified; I10 Essential (primary) hypertension; E11.9 Type 2 diabetes mellitus without complications; F17.210 Nicotine dependence, cigarettes, uncomplicated; Z79.84 Long term (current) use of oral hypoglycemic drugs; V89.2XXA Person injured in unspecified motor-vehicle accident, traffic, initial encounter
CPT/HCPCS: 72125; 72128; 72131

== ENCOUNTER 2024-06-16 14:40 | Emergency (ER) | payer SELFPAY | END 2024-06-16 15:50 | disposition home or self-care (01) | LOC: NAV ERS 14:40 | DX: S92.411A Displaced fracture of proximal phalanx of right great toe, initial encounter for closed fracture (principal); I10 Essential (primary) hypertension; E11.9 Type 2 diabetes mellitus without complications; F17.210 Nicotine dependence, cigarettes, uncomplicated; W22.8XXA Striking against or struck by other objects, initial encounter | CPT/HCPCS: 99283 ==

== ENCOUNTER 2024-07-15 16:33 | Emergency (ER) | payer SELFPAY ==
[2024-07-15] MEDS ORDERED: Sodium Chloride 0.9% 1,000 ML ONE (17:34)
[2024-07-15 17:41] LABS: #Basophils 0.1 thou/uL (0.0-0.2); #Eosinophils 0.1 thou/uL (0.0-0.7); #Lymphocytes 0.5 thou/uL (1.20-3.40); #Monocytes 0.6 thou/uL (0.11-0.59); #Neutrophils 4.9 thou/uL (1.40-6.50); %Eosinophils 2.4 % (0.0-10.0); %Lymphocytes 8.2 % (21.0-51.0); %Monocytes 9.1 % (0.0-10.0); %Neutrophils 79.3 % (42.0-75.0); Hematocrit 45.6 % (36.0-47.0); Hemoglobin 13.6 g/dL (12.0-16.0); Mean Corpuscular HGB CONC 29.9 g/dL (32.0-36.0); Mean Corpuscular Hemoglobin 27.3 pg (27.0-31.0); Mean Corpuscular Volume 91.2 fl (78.0-98.0); Mean Platelet Volume 10.6 fL (7.4-10.4); Platelet Count 103 10x3/uL (130-400); RBC Distribution Width 12.7 % (11.5-14.5); White Blood Cell (WBC) Count 6.2 10x3/uL (4.8-10.8)
[2024-07-15 17:58] LABS: ALT (SGPT) 13 U/L (8-55); AST (SGOT) 17 U/L (5-34); Albumin 4.4 g/dL (3.5-5.0); Alkaline Phosphatase 107 U/L (40-110); Anion Gap 19 mmol/L (10-20); BUN (Urea Nitrogen) 12 mg/dL (7.0-18.7); Bilirubin, Total 0.4 mg/dL (0.2-1.2); Calc. Creatinine Clearance 0 mL/min (70-130); Calcium 10.5 mg/dL (7.8-10.44); Carbon Dioxide 20 mmol/L (22-29); Chloride 100 mmol/L (98-107); Estimated GFR 61; Globulin 3.6 g/dL (2.4-3.5); Glucose 273 mg/dL (70-105); Potassium 4.6 mmol/L (3.5-5.1); Sodium 134 mmol/L (136-145)
[2024-07-15 17:59] LABS: Troponin I Less than 0.010 ng/mL (< 0.028)
[2024-07-15 19:18] LABS: Bilirubin Negative (Negative); Blood, Urine Negative (Negative); Glucose, Urine (Dipstick) 500 mg/dL (Negative); Ketone, Urine Negative (Negative); Leukocyte Negative (Negative); Nitrite Negative (Negative); Protein, Urine (Dipstick) 30 mg/dL (Neg-Trace); Specific Gravity, Urine 1.015 (1.005-1.030); Urobilinogen 0.2 mg/dL (Less than 2); pH, Urine 8.5 (5.0-9.0)
[2024-07-15 19:22] LABS: Clarity Hazy (Clear)
[2024-07-15 19:24] LABS: Bacteria/HPF 3+ HPF (None Seen); CAUTI Indications for Culture Pelvic or flank pain; RBC/HPF 0-3 HPF (0-3); Urine Culture Reflex No No; WBC/HPF 0-3 HPF (0-3)
[2024-07-15] MEDS ORDERED: Cyclobenzaprine 10 MG TAB ONE (19:29)
== END 2024-07-15 19:48 | disposition home or self-care (01) ==
LOC: NAV ERS 16:33
DX: M94.0 Chondrocostal junction syndrome [Tietze] (principal); M62.838 Other muscle spasm; I10 Essential (primary) hypertension; E11.40 Type 2 diabetes mellitus with diabetic neuropathy, unspecified; J44.9 Chronic obstructive pulmonary disease, unspecified; F17.210 Nicotine dependence, cigarettes, uncomplicated; Z79.899 Other long term (current) drug therapy; Z79.84 Long term (current) use of oral hypoglycemic drugs
CPT/HCPCS: 71045; 80053; 81001; 84484; 85025; 87428; 93005; J7030

== ENCOUNTER 2025-04-06 14:51 | Emergency (ER) | payer OTHER, SELFPAY | END 2025-04-06 16:20 | disposition home or self-care (01) | LOC: NAV ERS 14:51 | DX: S39.012A Strain of muscle, fascia and tendon of lower back, initial encounter (principal); I10 Essential (primary) hypertension; E11.40 Type 2 diabetes mellitus with diabetic neuropathy, unspecified; J44.9 Chronic obstructive pulmonary disease, unspecified; F17.210 Nicotine dependence, cigarettes, uncomplicated; Z79.899 Other long term (current) drug therapy; Z79.84 Long term (current) use of oral hypoglycemic drugs; W10.9XXA Fall (on) (from) unspecified stairs and steps, initial encounter | CPT/HCPCS: 72131; 72192 ==